=== PATIENT | male | born 2000 | race Caucasian/White ===

== ENCOUNTER 2022-08-05 16:20 | Inpatient (IN) ==
[2022-08-05 17:29] LABS: Albumin Globulin Ratio 1.8 (0.9-2); Albumin Level 4.8 gm/dl (3.4-5.0); BUN Creatinine Ratio 8.8 (10-20); Bilirubin,Total 1.1 mg/dl (0.2-1.0); Calcium 9.5 mg/dl (8.5-10.1); Creatinine Clr Calc Pharmacy 84.2 ml/min; Est GFR (African American) 107.1 ml/min; Est GFR (Non-African American) 92.4 ml/min; Globulin 2.7 gm/dl (2.5-4.0); Potassium 4.3 mmol/L (3.5-5.1); Total Protein 7.5 gm/dl (6.0-8.3)
[2022-08-05 17:32] LABS: Basophils # (auto) 0.01 K/uL (0-0.2); Echinocytes 1+; Eosinophils # (auto) 0.02 K/uL (0-0.50); Eosinophils % (auto) 2.1 %; Hematocrit (blood only) 38.8 % (40.1-51.0); Lymphocytes # (auto) 0.64 K/uL (1.2-3.4); Lymphocytes % (auto) 66.7 %; Mean Corpuscular Hemoglobin 30.1 pg (25.0-34.0); Mean Corpuscular Hgb Conc 36.1 g/dL (32.0-36.0); Mean Corpuscular Volume 83.4 fL (80.0-100.0); Mean Platelet Volume 9.7 fL (9.4-12.4); Monocytes # (auto) 0.26 K/uL (0.24-0.82); Monocytes % (auto) 27.1 %; Neutrophils # (auto) 0.03 K/uL (1.4-6.5); Neutrophils % (auto) 3.1 %; Platelet Count 126 K/uL (130-400); RDW Coefficient of Variation 12.4 % (11.5-14.5); RDW Standard Deviation 37.7 fL (36.4-46.3); Red Blood Count 4.65 M/uL (4.63-6.08); Tear Drop Cells 1+; White Blood Count 0.96 K/ul (4.8-10.8)
[2022-08-05] MEDS ORDERED: SODIUM CHLORIDE 0.9% 1000ML 1,000 ML IV ONE (17:32)
--- NOTE | 2022-08-05 17:37 | Emergency Department Note ---
Impression & Plan Fever and neutropenia ED Provider Note NAME: ANGELA JEFFREY AGE: 21 SEX: M : 2000 ARRIVES VIA: Walk-In INFORMANT: Patient, ED PROVIDER(S): Gasper Ellis DO CHIEF COMPLAINT: Fever HPI: The patient is a 21-year-old male who was recently diagnosed with Hodgkin's lymphoma who presented to the emergency department for an evaluation of fever. The patient had a fever which began over the last 24 hours. He did receive chemotherapy for the first time 1 week ago for his Hodgkin's lymphoma. The patient himself notices no cough. He denies having any dysuria. He has no back pain or rashes. He had a port placed as his right chest wall. He states there is no redness or pain over this area compared to previous. He called his oncologist when he developed a fever and was advised to come the emergency department immediately. ROS: See above HPI for pertinent positives & negatives. A total of 10 systems reviewed and were otherwise negative. PAST MEDICAL HISTORY: See Below PAST SURGICAL HISTORY: See Below FAMILY HISTORY: See Below SOCIAL HISTORY: See Below HOME MEDICATIONS: See Below ALLERGIES: See Below VITALS: See Below PHYSICAL EXAMINATION: GENERAL: Patient is awake alert in no acute distress patient is resting comfortably and showing no signs of anxiety EYES: The conjunctivae are clearpale. The pupils are round and reactive. EARS, NOSE, MOUTH AND THROAT: The nose is without any evidence of any deformity. NECK: The neck is nontender and supple. RESPIRATORY: Normal respiratory effort is noted there is no evidence of wheezing rhonchi or rales CARDIOVASCULAR: Regular rate and rhythm noted there no murmurs rubs or gallops normal S1 normal S2. GASTROINTESTINAL: The abdomen is soft. Abdomen is nontender. MUSCULOSKELETAL/EXTREMITIES: There is no evidence of gross deformity full range of motion is noted in the hips and shoulders. SKIN: Skin is cool and dry. There is no significant pedal edema. There is a port noted in the right anterior chest wall. There is no significant swelling or erythema however there is ecchymosis on the superior portion of the port vitaly cement. NEUROLOGIC: Patient is awake alert and oriented x3 MEDICAL DECISION MAKING: The patient is a 21-year-old male who presented to the emergency department for an evaluation of fever. The patient is 1 week status post infusion for chemotherapy for treatment of Hodgkin's lymphoma. The patient was treated with IV fluids in the emergency department. He was also treated with IV cefepime. I discussed the patient's laboratory and radiographic studies with him. I also discussed this case with the on-call [facility] hospitalist group. They have agr felipa to evaluate the patient in the emergency department for further management and disposition. Triage Nursing notes reviewed. Prior medical records reviewed Vital Signs: reviewed and remarkable for no significant abnormalities Differential diagnosis: Viral syndrome, otitis, pharyngitis, pneumonia, influenza, meningitis, urinary tract infection, sepsis, bacteremia, as well as other pathologies. ER treatment provided: See below Diagnostics interpreted by me: ECG: EKG was obtained in the emergency department. My interpretation is normal sinus rhythm at 90 bpm. There is no ectopy. Nonspecific ST segment abnormalities were noted in the anterior leads. No previous tracing was available. Cardiac Monitoring: An order was placed for continuous cardiac monitoring. The monitor shows a rate of 90 bpm with sinus rhythm. Laboratory studies: As stated above and show below. Imaging studies: See below Consultation(s): I discussed this case with Zoe who is on-call for the [facility] hospitalist group. Past Med/Surg History Medical History CKD (chronic kidney disease), stage II Hodgkin's lymphoma Hypoplastic left heart s/p repair Lupus Social History Smoking Status: Never smoker Feels Safe at Home: Yes Allergies Allergies Allergy/AdvReac Type Severity Reaction Status Date / Time cefdinir Allergy Mild Verified 11/21/20 10:57 Penicillins Allergy Mild Verified 11/21/20 10:58 Home Meds Home Medications Medication Instructions Recorded Confirmed allopurinol 100 mg tablet 300 mg PO DAILY 08/05/22 08/05/22 apixaban 2.5 mg tablet (Eliquis) 2.5 mg PO BID 08/05/22 08/05/22 digoxin 125 mcg (0.125 mg) tablet 125 mcg PO DAILY 08/05/22 08/05/22 lidocaine-prilocaine 2.5 %-2.5 % 08/05/22 topical cream lisinopril 2.5 mg tablet 2.5 mg PO DAILY 08/05/22 08/05/22 Results & Data (ED) Vital Signs Vital Signs - 24 hr 08/05/22 16:27 08/05/22 17:13 08/05/22 17:47 Temperature 37.2 C Temperature Source Oral Pulse Rate 113 H Pulse Rate [Apical] 99 H 92 H Pulse Rate from SpO2 Sensor Pulse Rhythm [Apical] Regular Regular Pulse Strength [Apical] Normal Normal Respiratory Rate 19 16 17 Respiratory Effort / Characteristics Non-Labored Spontaneous Non-Labored Spontaneous Respiratory Depth Normal Normal Respiratory Pattern Regular Regular Blood Pressure 101/65 Blood Pressure [Left Arm] 107/64 97/70 L Blood Pressure Mean 77 Blood Pressure Mean [Left Arm] 78 79 Blood Pressure Position [Left Arm] Semi-fowlers Semi-fowlers Pulse Oximetry 93 93 94 Oxygen Delivery Method Room Air Room Air Room Air Sepsis Recent Fever Within 48 Hours No Sepsis New/Unexplained Change in Mental Status N/A Sepsis Action Taken by Nursing No Action Required 08/05/22 18:00 08/05/22 18:41 08/05/22 19:00 Temperature 37.4 C Temperature Source Oral Pulse Rate Pulse Rate [Apical] 91 H 92 H 102 H Pulse Rate from SpO2 Sensor Pulse Rhythm [Apical] Regular Regular Regular Pulse Strength [Apical] Normal Normal Normal Respiratory Rate 18 18 14 Respiratory Effort / Characteristics Non-Labored Spontaneous Non-Labored Spontaneous Non-Labored Respiratory Depth Normal Normal Normal Respiratory Pattern Regular Regular Regular Blood Pressure Blood Pressure [Left Arm] 102/65 100/68 100/62 Blood Pressure Mean Blood Pressure Mean [Left Arm] 77 78 74 Blood Pressure Position [Left Arm] Semi-fowlers Semi-fowlers Lying Pulse Oximetry 97 94 94 Oxygen Delivery Method Room Air Room Air Room Air Sepsis Recent Fever Within 48 Hours Sepsis New/Unexplained Change in Mental Status Sepsis Action Taken by Nursing 08/05/22 17:11 08/05/22 17:15 08/05/22 17:30 Temperature Temperature Source Pulse Rate 100 H 100 H Pulse Rate [Apical] Pulse Rate from SpO2 Sensor 99 H 100 H Pulse Rhythm [Apical] Pulse Strength [Apical] Respiratory Rate 20 22 Respiratory Effort / Characteristics Respiratory Depth Respiratory Pattern Blood Pressure 97/70 L Blood Pressure [Left Arm] Blood Pressure Mean 79 Blood Pressure Mean [Left Arm] Blood Pressure Position [Left Arm] Pulse Oximetry 94 92 Oxygen Delivery Method Sepsis Recent Fever Within 48 Hours Sepsis New/Unexplained Change in Mental Status Sepsis Action Taken by Nursing 08/05/22 17:30 08/05/22 17:45 08/05/22 18:00 Temperature Temperature Source Pulse Rate 101 H 103 H Pulse Rate [Apical] Pulse Rate from SpO2 Sensor 100 H 100 H Pulse Rhythm [Apical] Pulse Strength [Apical] Respiratory Rate 27 H 27 H Respiratory Effort / Characteristics Respiratory Depth Respiratory Pattern Blood Pressure 102/65 Blood Pressure [Left Arm] Blood Pressure Mean 77 Blood Pressure Mean [Left Arm] Blood Pressure Position [Left Arm] Pulse Oximetry 91 91 Oxygen Delivery Method Sepsis Recent Fever Within 48 Hours Sepsis New/Unexplained Change in Mental Status Sepsis Action Taken by Nursing 08/05/22 18:00 08/05/22 18:15 08/05/22 18:30 Temperature Temperature Source Pulse Rate 91 H 97 H Pulse Rate [Apical] Pulse Rate from SpO2 Sensor 93 H 95 H Pulse Rhythm [Apical] Pulse Strength [Apical] Respiratory Rate 19 23 Respiratory Effort / Characteristics Respiratory Depth Respiratory Pattern Blood Pressure 100/68 Blood Pressure [Left Arm] Blood Pressure Mean 78 Blood Pressure Mean [Left Arm] Blood Pressure Position [Left Arm] Pulse Oximetry 95 96 Oxygen Delivery Method Sepsis Recent Fever Within 48 Hours Sepsis New/Unexplained Change in Mental Status Sepsis Action Taken by Nursing 08/05/22 18:30 08/05/22 18:45 08/05/22 19:00 Temperature Temperature Source Pulse Rate 91 H 95 H Pulse Rate [Apical] Pulse Rate from SpO2 Sensor 96 H Pulse Rhythm [Apical] Pulse Strength [Apical] Respiratory Rate 16 19 Respiratory Effort / Characteristics Respiratory Depth Respiratory Pattern Blood Pressure 93/60 L Blood Pressure [Left Arm] Blood Pressure Mean 71 Blood Pressure Mean [Left Arm] Blood Pressure Position [Left Arm] Pulse Oximetry 92 Oxygen Delivery Method Sepsis Recent Fever Within 48 Hours Sepsis New/Unexplained Change in Mental Status Sepsis Action Taken by Nursing 08/05/22 19:00 08/05/22 19:15 08/05/22 20:00 Temperature Temperature Source Pulse Rate 97 H 98 H Pulse Rate [Apical] 88 Pulse Rate from SpO2 Sensor 96 H 98 H Pulse Rhythm [Apical] Regular Pulse Strength [Apical] Normal Respiratory Rate 15 26 H 14 Respiratory Effort / Characteristics Non-Labored Respiratory Depth Normal Respiratory Pattern Regular Blood Pressure Blood Pressure [Left Arm] 117/88 Blood Pressure Mean Blood Pressure Mean [Left Arm] 97 Blood Pressure Position [Left Arm] Sitting Pulse Oximetry 92 92 99 Oxygen Delivery Method Room Air Sepsis Recent Fever Within 48 Hours Sepsis New/Unexplained Change in Mental Status Sepsis Action Taken by Nursing 08/05/22 19:30 08/05/22 19:30 08/05/22 19:45 Temperature Temperature Source Pulse Rate 99 H 104 H Pulse Rate [Apical] Pulse Rate from SpO2 Sensor 99 H 104 H Pulse Rhythm [Apical] Pulse Strength [Apical] Respiratory Rate 13 12 Respiratory Effort / Characteristics Respiratory Depth Respiratory Pattern Blood Pressure 111/68 Blood Pressure [Left Arm] Blood Pressure Mean 82 Blood Pressure Mean [Left Arm] Blood Pressure Position [Left Arm] Pulse Oximetry 93 90 Oxygen Delivery Method Sepsis Recent Fever Within 48 Hours Sepsis New/Unexplained Change in Mental Status Sepsis Action Taken by Nursing 08/05/22 20:00 08/05/22 20:00 08/05/22 20:15 Temperature Temperature Source Pulse Rate 95 H 96 H Pulse Rate [Apical] Pulse Rate from SpO2 Sensor 94 H 97 H Pulse Rhythm [Apical] Pulse Strength [Apical] Respiratory Rate 17 24 Respiratory Effort / Characteristics Respiratory Depth Respiratory Pattern Blood Pressure 92/65 L Blood Pressure [Left Arm] Blood Pressure Mean 74 Blood Pressure Mean [Left Arm] Blood Pressure Position [Left Arm] Pulse Oximetry 84 L 94 Oxygen Delivery Method Sepsis Recent Fever Within 48 Hours Sepsis New/Unexplained Change in Mental Status Sepsis Action Taken by [facility]dc Medications Current Medication List: was personally reviewed by me Laboratory Data Attestation: I reviewed the patient's lab results. Result diagrams: 08/05/22 16:43 08/05/22 16:43 Lab Results 08/05/22 08/05/22 08/05/22 Range/Units 16:43 16:43 16:43 WBC 0.96 L* (4.8-10.8) K/ul RBC 4.65 (4.63-6.08) M/uL Hgb 14.0 (14.0-18.0) g/dl Hct 38.8 L (40.1-51.0) % MCV 83.4 (80.0-100.0) fL MCH 30.1 (25.0-34.0) pg MCHC 36.1 H (32.0-36.0) g/dL RDW Std Deviation 37.7 (36.4-46.3) fL RDW Coeff of Servando 12.4 (11.5-14.5) % Plt Count 126 L (130-400) K/uL MPV 9.7 (9.4-12.4) fL Immature Gran % (Auto) 0.0 % Neut % (Auto) 3.1 % Lymph % (Auto) 66.7 % Tyler % (Auto) 27.1 % Eos % (Auto) 2.1 % Baso % (Auto) 1.0 % Neut # (Auto) 0.03 L* (1.4-6.5) K/uL Lymph # (Auto) 0.64 L (1.2-3.4) K/uL Tyler # (Auto) 0.26 (0.24-0.82) K/uL Eos # (Auto) 0.02 (0-0.50) K/uL Baso # (Auto) 0.01 (0-0.2) K/uL Immature Gran # (Auto) 0.00 (0.00-0.02) K/uL Tear Drop Cells 1+ Echinocytes 1+ ESR (0-15) mm/hr Sodium 129 L (136-145) mmol/L Potassium 4.3 (3.5-5.1) mmol/L Chloride 97 L (98-107) mmol/L Carbon Dioxide 26 (21-32) mmol/L Anion Gap 6 (3-11) BUN 10 (6-23) mg/dl Creatinine 1.13 (0.6-1.4) mg/dl Est Cr Clr Drug Dosing 84.2 ml/min Est GFR ( Amer) 107.1 ml/min Est GFR (Non-Af Amer) 92.4 ml/min BUN/Creatinine Ratio 8.8 L (10-20) Glucose 99 (70-99(Fasting)) mg/dl Osmolality (280-300) mOsm/kg Lactate 0.6 (0.4-2.0) mmol/L Calcium 9.5 (8.5-10.1) mg/dl Magnesium (1.7-2.4) mg/dl Total Bilirubin 1.1 H (0.2-1.0) mg/dl Direct Bilirubin (0-0.2) mg/dl AST 16 (13-39) U/L ALT 30 (7-52) U/L Alkaline Phosphatase 64 (34-104) U/L Troponin I High Sens (0-20) pg/ml C-Reactive Protein (0-0.5) mg/dl Total Protein 7.5 (6.0-8.3) gm/dl Albumin 4.8 (3.4-5.0) gm/dl Globulin 2.7 (2.5-4.0) gm/dl Albumin/Globulin Ratio 1.8 (0.9-2) Procalcitonin (0-0.5) ng/ml Urine Color Urine Appearance (Clear) Urine pH (4.5-7.5) Ur Specific [place] (1.000-1.030) Urine Protein (Negative) Urine Glucose (UA) (Negative) Urine Ketones (Negative) Urine Blood (Negative) Urine Nitrite (Negative) Urine Bilirubin (Negative) Urine Urobilinogen (Negative) Ur Leukocyte Esterase (Negative) SARS-CoV-2, RNA, NAAT (NEGATIVE) 08/05/22 08/05/22 08/05/22 Range/Units 16:43 16:45 16:45 WBC (4.8-10.8) K/ul RBC (4.63-6.08) M/uL Hgb (14.0-18.0) g/dl Hct (40.1-51.0) % MCV (80.0-100.0) fL MCH (25.0-34.0) pg MCHC (32.0-36.0) g/dL RDW Std Deviation (36.4-46.3) fL RDW Coeff of Servando (11.5-14.5) % Plt Count (130-400) K/uL MPV (9.4-12.4) fL Immature Gran % (Auto) % Neut % (Auto) % Lymph % (Auto) % Tyler % (Auto) % Eos % (Auto) % Baso % (Auto) % Neut # (Auto) (1.4-6.5) K/uL Lymph # (Auto) (1.2-3.4) K/uL Tyler # (Auto) (0.24-0.82) K/uL Eos # (Auto) (0-0.50) K/uL Baso # (Auto) (0-0.2) K/uL Immature Gran # (Auto) (0.00-0.02) K/uL Tear Drop Cells Echinocytes ESR 13 (0-15) mm/hr Sodium (136-145) mmol/L Potassium (3.5-5.1) mmol/L Chloride (98-107) mmol/L Carbon Dioxide (21-32) mmol/L Anion Gap (3-11) BUN (6-23) mg/dl Creatinine (0.6-1.4) mg/dl Est Cr Clr Drug Dosing ml/min Est GFR ( Amer) ml/min Est GFR (Non-Af Amer) ml/min BUN/Creatinine Ratio (10-20) Glucose (70-99(Fasting)) mg/dl Osmolality (280-300) mOsm/kg Lactate (0.4-2.0) mmol/L Calcium (8.5-10.1) mg/dl Magnesium 1.8 (1.7-2.4) mg/dl Total Bilirubin (0.2-1.0) mg/dl Direct Bilirubin 0.4 H (0-0.2) mg/dl AST (13-39) U/L ALT (7-52) U/L Alkaline Phosphatase (34-104) U/L Troponin I High Sens 2.7 (0-20) pg/ml C-Reactive Protein 4.03 H (0-0.5) mg/dl Total Protein (6.0-8.3) gm/dl Albumin (3.4-5.0) gm/dl Globulin (2.5-4.0) gm/dl Albumin/Globulin Ratio (0.9-2) Procalcitonin < 0.05 (0-0.5) ng/ml Urine Color Urine Appearance (Clear) Urine pH (4.5-7.5) Ur Specific [place] (1.000-1.030) Urine Protein (Negative) Urine Glucose (UA) (Negative) Urine Ketones (Negative) Urine Blood (Negative) Urine Nitrite (Negative) Urine Bilirubin (Negative) Urine Urobilinogen (Negative) Ur Leukocyte Esterase (Negative) SARS-CoV-2, RNA, NAAT (NEGATIVE) 08/05/22 08/05/22 08/05/22 Range/Units 16:45 17:45 19:23 WBC (4.8-10.8) K/ul RBC (4.63-6.08) M/uL Hgb (14.0-18.0) g/dl Hct (40.1-51.0) % MCV (80.0-100.0) fL MCH (25.0-34.0) pg MCHC (32.0-36.0) g/dL RDW Std Deviation (36.4-46.3) fL RDW Coeff of Servando (11.5-14.5) % Plt Count (130-400) K/uL MPV (9.4-12.4) fL Immature Gran % (Auto) % Neut % (Auto) % Lymph % (Auto) % Tyler % (Auto) % Eos % (Auto) % Baso % (Auto) % Neut # (Auto) (1.4-6.5) K/uL Lymph # (Auto) (1.2-3.4) K/uL Tyler # (Auto) (0.24-0.82) K/uL Eos # (Auto) (0-0.50) K/uL Baso # (Auto) (0-0.2) K/uL Immature Gran # (Auto) (0.00-0.02) K/uL Tear Drop Cells Echinocytes ESR (0-15) mm/hr Sodium (136-145) mmol/L Potassium (3.5-5.1) mmol/L Chloride (98-107) mmol/L Carbon Dioxide (21-32) mmol/L Anion Gap (3-11) BUN (6-23) mg/dl Creatinine (0.6-1.4) mg/dl Est Cr Clr Drug Dosing ml/min Est GFR ( Amer) ml/min Est GFR (Non-Af Amer) ml/min BUN/Creatinine Ratio (10-20) Glucose (70-99(Fasting)) mg/dl Osmolality 271 L (280-300) mOsm/kg Lactate (0.4-2.0) mmol/L Calcium (8.5-10.1) mg/dl Magnesium (1.7-2.4) mg/dl Total Bilirubin (0.2-1.0) mg/dl Direct Bilirubin (0-0.2) mg/dl AST (13-39) U/L ALT (7-52) U/L Alkaline Phosphatase (34-104) U/L Troponin I High Sens (0-20) pg/ml C-Reactive Protein (0-0.5) mg/dl Total Protein (6.0-8.3) gm/dl Albumin (3.4-5.0) gm/dl Globulin (2.5-4.0) gm/dl Albumin/Globulin Ratio (0.9-2) Procalcitonin (0-0.5) ng/ml Urine Color Yellow Urine Appearance Clear (Clear) Urine pH 6.0 (4.5-7.5) Ur Specific [place] 1.010 (1.000-1.030) Urine Protein Negative (Negative) Urine Glucose (UA) Negative (Negative) Urine Ketones Negative (Negative) Urine Blood Negative (Negative) Urine Nitrite Negative (Negative) Urine Bilirubin Negative (Negative) Urine Urobilinogen Negative (Negative) Ur Leukocyte Esterase Negative (Negative) SARS-CoV-2, RNA, NAAT NEGATIVE (NEGATIVE) 08/05/22 Range/Units 19:34 WBC (4.8-10.8) K/ul RBC (4.63-6.08) M/uL Hgb (14.0-18.0) g/dl Hct (40.1-51.0) % MCV (80.0-100.0) fL MCH (25.0-34.0) pg MCHC (32.0-36.0) g/dL RDW Std Deviation (36.4-46.3) fL RDW Coeff of Servando (11.5-14.5) % Plt Count (130-400) K/uL MPV (9.4-12.4) fL Immature Gran % (Auto) % Neut % (Auto) % Lymph % (Auto) % Tyler % (Auto) % Eos % (Auto) % Baso % (Auto) % Neut # (Auto) (1.4-6.5) K/uL Lymph # (Auto) (1.2-3.4) K/uL Tyler # (Auto) (0.24-0.82) K/uL Eos # (Auto) (0-0.50) K/uL Baso # (Auto) (0-0.2) K/uL Immature Gran # (Auto) (0.00-0.02) K/uL Tear Drop Cells Echinocytes ESR (0-15) mm/hr Sodium (136-145) mmol/L Potassium (3.5-5.1) mmol/L Chloride (98-107) mmol/L Carbon Dioxide (21-32) mmol/L Anion Gap (3-11) BUN (6-23) mg/dl Creatinine (0.6-1.4) mg/dl Est Cr Clr Drug Dosing ml/min Est GFR ( Amer) ml/min Est GFR (Non-Af Amer) ml/min BUN/Creatinine Ratio (10-20) Glucose (70-99(Fasting)) mg/dl Osmolality (280-300) mOsm/kg Lactate 0.6 (0.4-2.0) mmol/L Calcium (8.5-10.1) mg/dl Magnesium (1.7-2.4) mg/dl Total Bilirubin (0.2-1.0) mg/dl Direct Bilirubin (0-0.2) mg/dl AST (13-39) U/L ALT (7-52) U/L Alkaline Phosphatase (34-104) U/L Troponin I High Sens (0-20) pg/ml C-Reactive Protein (0-0.5) mg/dl Total Protein (6.0-8.3) gm/dl Albumin (3.4-5.0) gm/dl Globulin (2.5-4.0) gm/dl Albumin/Globulin Ratio (0.9-2) Procalcitonin (0-0.5) ng/ml Urine Color Urine Appearance (Clear) Urine pH (4.5-7.5) Ur Specific [place] (1.000-1.030) Urine Protein (Negative) Urine Glucose (UA) (Negative) Urine Ketones (Negative) Urine Blood (Negative) Urine Nitrite (Negative) Urine Bilirubin (Negative) Urine Urobilinogen (Negative) Ur Leukocyte Esterase (Negative) SARS-CoV-2, RNA, NAAT (NEGATIVE) Administered Medications Discontinued Medications Apixaban (Apixaban 2.5 Mg Tab) 2.5 mg PO NOW STA Stop: 08/05/22 20:19 Last Admin: 08/05/22 20:54 Dose: 2.5 mg Documented By: LANA Sodium Chloride (Nss 1000ml) 1,000 mls @ 999 mls/hr IV .[id number] ONE Stop: 08/05/22 18:32 Last Infusion: 08/05/22 18:32 Dose: 0 mls/hr Documented By: Admin: 08/05/22 17:30 Dose: 999 mls/hr Documented By: NA Cefepime HCl (Maxipime) 2,000 mg in 20 mls @ 5 mls/min IV NOW STA; Protocol Stop: 08/05/22 17:57 Last Admin: 08/05/22 18:07 Dose: 5 mls/min Documented By: LOUISE Daptomycin 350 mg/ Syringe 7 mls @ 3.5 mls/min IV ONE ONE; Protocol Stop: 08/05/22 19:31 Last Admin: 08/05/22 20:40 Dose: 3.5 mls/min Documented By: LANA Magnesium Sulfate/Dextrose (Magnesium Sulfate / D5w) 1 gm in 100 mls @ 50 mls/hr IV ONE ONE Stop: 08/05/22 21:20 Last Admin: 08/05/22 20:41 Dose: 50 mls/hr Documented By: LANA Imaging Data Radiologist's Impression: Chest X-Ray 08/05/22 17:32 XR chest 1V portable HISTORY: 21 years-old Male Sepsis acute sepsis COMPARISON: None TECHNIQUE: AP view of the chest FINDINGS: Cardiac silhouette is enlarged. Pediatric sternotomy wires are present. Right IJ [id number]-[id number] catheter distal tip terminates within the right atrium. The patient is mildly rotated towards the left. No pneumothorax, large pleural effusion, airspace consolidation or overt pulmonary edema. Mild blunting of the lateral right costophrenic angle. Bones appear normal. IMPRESSION: No acute process. ACT 112: Negative or not required by law. The above report was generated using voice recognition software. It may contain grammatical, syntax or spelling errors. Electronically signed by: Sp Mendoza M.D. 08/05/2022 5:40 PM Discharge Plan Visit Data Chief Complaint: Fever Stated Complaint: CHEMO, REF BY , FEVER ED Provider: Gasper Ellis Discharge Problem: Fever and neutropenia Patient Disposition: Being Evaluated by Hospitalist Discharge Instructions Interventions: ED Discharge Assessment Last Done: 08/05/22 22:00
--- NOTE | 2022-08-05 17:42 | XRay Report ---
XR chest 1V portable HISTORY: 21 years-old Male Sepsis acute sepsis COMPARISON: None TECHNIQUE: AP view of the chest FINDINGS: Cardiac silhouette is enlarged. Pediatric sternotomy wires are present. Right IJ [id number] cathet er distal tip terminates within the right atrium. The patient is mildly rotated towards the left. No pneumothorax, large pleural effusion, airspace consolidation or overt pulmonary edema. Mild blunting of the lateral right costophrenic angle. Bones appear normal. IMPRESSION: No acute process. ACT 112: Negative or not required by law. The above report was generated using voice recognition software. It may contain grammatical, syntax o r spelling errors. Electronically signed by: Sp Mendoza M.D. 08/05/2022 5:40 PM
[2022-08-05] MEDS ORDERED: CEFEPIME 2,000 MG/20 ML VIAL IV STA (17:54)
[2022-08-05 18:13] LABS: Appearance Urine Clear (Clear); Bilirubin Urine Negative (Negative); Blood Urine Negative (Negative); Color Urine Yellow; Glucose Urine UA Negative (Negative); Ketones Urine Negative (Negative); Leukocyte Esterase Urine Negative (Negative); Nitrite Urine Negative (Negative); Protein Urine Negative (Negative); Urobilinogen Urine Negative (Negative)
[2022-08-05 18:32] LABS: Bilirubin Direct 0.4 mg/dl (0-0.2); C Reactive Protein 4.03 mg/dl (0-0.5); Magnesium 1.8 mg/dl (1.7-2.4)
[2022-08-05 18:39] LABS: Troponin I High Sensitivity 2.7 pg/ml (0-20)
[2022-08-05] MEDS ORDERED: MAGNESIUM SULFATE / D5W 1 GM/100 ML BAG IV ONE (19:21)
[2022-08-05] MEDS ORDERED: DAPTOmycin 350 MG in SYRINGE 0 ML IV ONE (19:30)
--- NOTE | 2022-08-05 20:10 | History & Physical Report ---
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 Daptomycin and Cefepime for now DVT prophylaxis. Eliquis Full code Patient mother requesting updates from providers. Ms. Babita Cline, contact #[phone]. Text document was generated using [employer] voice recognition software. It may contain grammatical or spelling errors. Kindly contact undersigned for clarification of any documentation item in question. History of Present Illness Chief Complaint: Fever, sent by oncologist Primary Care Provider: Isaiah Rangel DO History obtained from patient, family, and records. 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 Patient received chemotherapy for the first time last week. Tolerable nausea symptoms. Today, patient noted to be febrile at home. Patient denies chest pain, SOB, cough, abdominal pain, dysuria symptoms. Patient actually constipated. Usual A port redness as per patient. Patient has not received COVID-19 vaccination. 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 IV Cefepime administered at the ER. Medical History as above Surgical History : A port placement lymph node biopsy, modified Fontan procedure, Santi repair, vessel shunt procedure Family History : Alcoholism, blood clots, DM, heart disease, rheumatoid arthritis Personal/Social history : Non-smoker, no EtOH intake, retail work at a local [employer] Allergies Allergy/AdvReac Type Severity Reaction Status Date / Time cefdinir Allergy Mild Verified 11/21/20 10:57 Penicillins Allergy Mild Verified 11/21/20 10:58 Home Medications Medication Instructions Recorded Confirmed Type allopurinol 100 mg tablet 300 mg PO DAILY 08/05/22 08/05/22 History apixaban 2.5 mg tablet (Eliquis) 2.5 mg PO BID 08/05/22 08/05/22 History digoxin 125 mcg (0.125 mg) tablet 125 mcg PO DAILY 08/05/22 08/05/22 History lidocaine-prilocaine 2.5 %-2.5 % 08/05/22 History topical cream lisinopril 2.5 mg tablet 2.5 mg PO DAILY 08/05/22 08/05/22 History Past Med/Surg History Medical History (Updated 08/06/22 @ 10:22 by Eduin Lizarraga MD) CKD (chronic kidney disease), stage II Factor V Leiden mutation Hodgkin's lymphoma Hyperuricemia Hypoplastic left heart s/p repair Lupus Splenomegaly Thrombocytopenia due to hypersplenism Social History Smoking Status: Never smoker Hx Alcohol Use: No Hx Substance Use: No Communication Ability: Effective Beliefs That Will Affect Care: None Current Living Situation: Family Feels Safe at Home: Yes Review of Systems Review of Systems: As per HPI, all other systems reviewed and negative Physical Exam Physical Exam: GENERAL: Comfortable, pleasant, no respiratory distress SKIN: Normal color, warm HEENT: [place] palpebral conjunctivae, no ptosis, dry buccal mucosa NECK : Supple, no tenderness CHEST : CTA, a port, right chest wall, no tenderness HEART : RRR, no obvious murmurs ABDOMEN: Some distention, nontender EXTREMITIES : No LE swelling/tenderness, no other conspicuous deformities noted NEUROLOGIC : Coherent, no facial asymmetry, no other gross focality Results & Data Results & Data ([facility]) Vital Signs (Past 12 Hours) Vital Signs Temp Pulse Pulse Resp BP BP Pulse Ox 08/05/22 19:15 98 H 26 H 92 08/05/22 19:00 97 H 15 92 08/05/22 19:00 93/60 L 08/05/22 18:45 95 H 19 92 08/05/22 18:30 91 H 16 08/05/22 18:30 100/68 08/05/22 18:15 97 H 23 96 08/05/22 18:00 91 H 19 95 08/05/22 18:00 102/65 08/05/22 17:45 103 H 27 H 91 08/05/22 17:30 101 H 27 H 91 08/05/22 17:30 97/70 L 08/05/22 17:15 100 H 22 92 08/05/22 17:11 100 H 20 94 08/05/22 19:00 37.4 C 102 H 14 100/62 94 08/05/22 18:41 92 H 18 100/68 94 08/05/22 18:00 91 H 18 102/65 97 08/05/22 17:47 92 H 17 97/70 L 94 08/05/22 17:13 99 H 16 107/64 93 08/05/22 16:27 37.2 C 113 H 19 101/65 93 O2 Del Method 08/05/22 19:15 08/05/22 19:00 08/05/22 19:00 08/05/22 18:45 08/05/22 18:30 08/05/22 18:30 08/05/22 18:15 08/05/22 18:00 08/05/22 18:00 08/05/22 17:45 08/05/22 17:30 08/05/22 17:30 08/05/22 17:15 08/05/22 17:11 08/05/22 19:00 Room Air 08/05/22 18:41 Room Air 08/05/22 18:00 Room Air 08/05/22 17:47 Room Air 08/05/22 17:13 Room Air 08/05/22 16:27 Room Air Laboratory Results Laboratory Results WBC 0.96 K/ul (4.8-10.8) L* 08/05/22 16:43 RBC 4.65 M/uL (4.63-6.08) 08/05/22 16:43 Hgb 14.0 g/dl (14.0-18.0) 08/05/22 16:43 Hct 38.8 % (40.1-51.0) L 08/05/22 16:43 MCV 83.4 fL (80.0-100.0) 08/05/22 16:43 MCH 30.1 pg (25.0-34.0) 08/05/22 16:43 MCHC 36.1 g/dL (32.0-36.0) H 08/05/22 16:43 RDW Std Deviation 37.7 fL (36.4-46.3) 08/05/22 16:43 RDW Coeff of [place]ando 12.4 % (11.5-14.5) 08/05/22 16:43 Plt Count 126 K/uL (130-400) L 08/05/22 16:43 MPV 9.7 fL (9.4-12.4) 08/05/22 16:43 Immature Gran % (Auto) 0.0 % 08/05/22 16:43 Neut % (Auto) 3.1 % 08/05/22 16:43 Lymph % (Auto) 66.7 % 08/05/22 16:43 [place] % (Auto) 27.1 % 08/05/22 16:43 Eos % (Auto) 2.1 % 08/05/22 16:43 Baso % (Auto) 1.0 % 08/05/22 16:43 Neut # (Auto) 0.03 K/uL (1.4-6.5) L* 08/05/22 16:43 Lymph # (Auto) 0.64 K/uL (1.2-3.4) L 08/05/22 16:43 [place] # (Auto) 0.26 K/uL (0.24-0.82) 08/05/22 16:43 Eos # (Auto) 0.02 K/uL (0-0.50) 08/05/22 16:43 Baso # (Auto) 0.01 K/uL (0-0.2) 08/05/22 16:43 Immature Gran # (Auto) 0.00 K/uL (0.00-0.02) 08/05/22 16:43 Tear Drop Cells 1+ 08/05/22 16:43 Echinocytes 1+ 08/05/22 16:43 ESR 13 mm/hr (0-15) 08/05/22 16:43 Sodium 129 mmol/L (136-145) L 08/05/22 16:43 Potassium 4.3 mmol/L (3.5-5.1) 08/05/22 16:43 Chloride 97 mmol/L (98-107) L 08/05/22 16:43 Carbon Dioxide 26 mmol/L (21-32) 08/05/22 16:43 Anion Gap 6 (3-11) 08/05/22 16:43 BUN 10 mg/dl (6-23) 08/05/22 16:43 Creatinine 1.13 mg/dl (0.6-1.4) 08/05/22 16:43 Est Cr Clr Drug Dosing 84.2 ml/min 08/05/22 16:43 Est GFR ( Amer) 107.1 ml/min 08/05/22 16:43 Est GFR (Non-Af Amer) 92.4 ml/min 08/05/22 16:43 BUN/Creatinine Ratio 8.8 (10-20) L 08/05/22 16:43 Glucose 99 mg/dl (70-99(Fasting)) 08/05/22 16:43 Lactate 0.6 mmol/L (0.4-2.0) 08/05/22 16:43 Calcium 9.5 mg/dl (8.5-10.1) 08/05/22 16:43 Magnesium 1.8 mg/dl (1.7-2.4) 08/05/22 16:45 Total Bilirubin 1.1 mg/dl (0.2-1.0) H 08/05/22 16:43 Direct Bilirubin 0.4 mg/dl (0-0.2) H 08/05/22 16:45 AST 16 U/L (13-39) 08/05/22 16:43 ALT 30 U/L (7-52) 08/05/22 16:43 Alkaline Phosphatase 64 U/L (34-104) 08/05/22 16:43 Troponin I High Sens 2.7 pg/ml (0-20) 08/05/22 16:45 C-Reactive Protein 4.03 mg/dl (0-0.5) H 08/05/22 16:45 Total Protein 7.5 gm/dl (6.0-8.3) 08/05/22 16:43 Albumin 4.8 gm/dl (3.4-5.0) 08/05/22 16:43 Globulin 2.7 gm/dl (2.5-4.0) 08/05/22 16:43 Albumin/Globulin Ratio 1.8 (0.9-2) 08/05/22 16:43 Procalcitonin < 0.05 ng/ml (0-0.5) 08/05/22 16:45 Urine Color Yellow 08/05/22 17:45 Urine Appearance Clear (Clear) 08/05/22 17:45 Urine pH 6.0 (4.5-7.5) 08/05/22 17:45 Ur Specific [place] 1.010 (1.000-1.030) 08/05/22 17:45 Urine Protein Negative (Negative) 08/05/22 17:45 Urine Glucose (UA) Negative (Negative) 08/05/22 17:45 Urine Ketones Negative (Negative) 08/05/22 17:45 Urine Blood Negative (Negative) 08/05/22 17:45 Urine Nitrite Negative (Negative) 08/05/22 17:45 Urine Bilirubin Negative (Negative) 08/05/22 17:45 Urine Urobilinogen Negative (Negative) 08/05/22 17:45 Ur Leukocyte Esterase Negative (Negative) 08/05/22 17:45 SARS-CoV-2, RNA, NAAT NEGATIVE (NEGATIVE) 08/05/22 19:23 Impressions Chest X-Ray 08/05/22 17:32 XR chest 1V portable HISTORY: 21 years-old Male Sepsis acute sepsis COMPARISON: None TECHNIQUE: AP view of the chest FINDINGS: Cardiac silhouette is enlarged. Pediatric sternotomy wires are present. Right IJ [id number] catheter distal tip terminates within the right atrium. The patient is mildly rotated towards the left. No pneumothorax, large pleural effusion, airspace consolidation or overt pulmonary edema. Mild blunting of the lateral right costophrenic angle. Bones appear normal. IMPRESSION: No acute process. ACT 112: Negative or not required by law. The above report was generated using voice recognition software. It may contain grammatical, syntax or spelling errors. Electronically signed by: Sp Mendoza M.D. 08/05/2022 5:40 PM Diagnostic Findings EKG as per my interpretation :Rate 100, NSR, RAD, incomplete RBBB, RVH, T wave inversion septal leads
[2022-08-05] MEDS ORDERED: APIXABAN 2.5 MG TAB PO STA (20:18)
[2022-08-05] MEDS ORDERED: PROMETHAZINE HCL 6.25 MG in SODIUM CHLORIDE 0.9% 50 ML IV PRN (22:29)
[2022-08-05] MEDS ORDERED: POLYETHYLENE (MIRALAX) 17 GM PACK PO STA (23:45)
[2022-08-06] MEDS: DOCUSATE SODIUM/SENNA 50/8.6MG TAB PO SCH ×2 (00:44→09:08)
[2022-08-06] MEDS: CEFEPIME 2,000 MG in SYRINGE 0 ML IV SCH ×3 (04:38→19:43)
[2022-08-06] MEDS: ACETAMINOPHEN 325 MG TAB PO PRN (04:38)
[2022-08-06] MEDS ORDERED: SODIUM CHLORIDE 0.9% 1000ML 1,000 ML IV ONE (04:40)
[2022-08-06] MEDS ORDERED: lisinopril 2.5 MG TAB PO SCH (09:00)
[2022-08-06] MEDS: allopurinoL 300 MG TAB PO SCH (09:07)
[2022-08-06] MEDS: APIXABAN 2.5 MG TAB PO SCH ×2 (09:07→21:56)
[2022-08-06 09:45] LABS: Albumin Globulin Ratio 1.4 (0.9-2); BUN Creatinine Ratio 12.1 (10-20); Calcium 9.2 mg/dl (8.5-10.1); Creatinine Clr Calc Pharmacy 81.4 ml/min; Est GFR (African American) 103.8 ml/min; Est GFR (Non-African American) 89.5 ml/min; Globulin 2.8 gm/dl (2.5-4.0); Total Protein 6.8 gm/dl (6.0-8.3)
[2022-08-06 10:30] LABS: Basophils # (auto) 0.01 K/uL (0-0.2); Basophils % (auto) 1.2 %; Eosinophils # (auto) 0.04 K/uL (0-0.50); Eosinophils % (auto) 4.8 %; Hematocrit (blood only) 34.4 % (40.1-51.0); Hemoglobin 12.3 g/dl (14.0-18.0); Lymphocytes # (auto) 0.51 K/uL (1.2-3.4); Lymphocytes % (auto) 61.4 %; Mean Corpuscular Hemoglobin 29.8 pg (25.0-34.0); Mean Corpuscular Hgb Conc 35.8 g/dL (32.0-36.0); Mean Corpuscular Volume 83.3 fL (80.0-100.0); Mean Platelet Volume 9.8 fL (9.4-12.4); Monocytes # (auto) 0.24 K/uL (0.24-0.82); Monocytes % (auto) 28.9 %; Neutrophils # (auto) 0.03 K/uL (1.4-6.5); Neutrophils % (auto) 3.7 %; Platelet Count 93 K/uL (130-400); RDW Coefficient of Variation 12.6 % (11.5-14.5); RDW Standard Deviation 38.3 fL (36.4-46.3); Red Blood Count 4.13 M/uL (4.63-6.08); White Blood Count 0.83 K/ul (4.8-10.8)
--- NOTE | 2022-08-06 12:35 | Electrocardiogram Report ---
Test Reason : Blood Pressure : / mmHG Vent. Rate : 098 BPM Atrial Rate : 098 BPM P-R Int : 204 ms QRS Dur : 104 ms QT Int : 342 ms P-R-T Axes : 024 104 077 degrees QTc Int : 436 ms Normal sinus rhythm Incomplete right bundle branch block Possible Right ventricular hypertrophy Nonspecific ST abnormality Abnormal ECG No previous ECGs available Confirmed by Hernan Blevins ([id number]) on 08/06/2022 12:34:53 PM Referred By: REFERRED SELF Confirmed By:Hernan Blevins
--- NOTE | 2022-08-06 15:49 | Hospitalist Progress Note ---
Date of Service August 06, 2022 Assessment & Plan (1) Sepsis: Plan: Resuscitated this am, however, was hypotensive throughout the day today requiring 2.5L LR bolus . Cont IVF resuscitation and if no improvement consider pressor support. Moving to PCU overnight. Low threshold for pressors in ICU. Cont broad abx. (2) Fever and neutropenia: Plan: Fever in last two days. No clear source. Cont broad antibiotic coverage now with Daptomycin and Cefepime. CK in am. For his neutropenia, if no improvement in ANC by tomorrow, will give Neupogen. Discussed this plan with his Oncologist. (3) Hodgkin's lymphoma: Plan: on treatment with Adriamycin, vinblastine and Dacarbazine last given approx 10- 14 days ago. That was his first treatment. Cont per oncology who is aware of his current admission. (4) Factor V Leiden mutation: Plan: on apixaban for DVT prophylaxis. No prior thrombotic events but is high risk for this now. (5) Hyperuricemia: Plan: Continues on allopurinol (6) Drug-induced systemic lupus erythematosus: Plan: history of this. (7) DVT prophylaxis: Plan: Eliquis Full Code Dipso-to home when sepsis is resolved and we have achieved source control. Sister was at bedside and was updated. Charity Gardner DO [facility] Hospitalist Admission and Anticipated Discharge Date Admission Date: August 05, 2022 Subjective 21 yo M with febrile neutropenia without clear source. He is a chemo patient with Hogkin's lymphoma with last chemo treatment 10 days ago. Intermittent chills throughout the morning He is up and walking in the room Denies respiratory symptoms Denies pain anywhere Review of Systems Review of Systems: all systems were reviewed and negative except as indicated on subjective above. Physical Exam Physical Exam: CONSTITUTIONAL: WNWD, vitals as above, generally well- appearing, NAD EYES: normal conjunctivae, no scleral icterus ENT: external ear and nose normal, MMM, cheeks are flushed NECK: trachea midline RESPIRATORY: clear to auscultation bilaterally, no crackles, rales or wheezes, normal respiratory effort CARDIOVASCULAR: regular rate and rhythm, S1 and 2 heard without murmurs, ga llops or rubs, no JVD, no peripheral edema CHEST: inspection of chest was normal GASTROINTESTINAL: soft, nontender, ND, no guarding MUSCULOSKELETAL: strength 5/5 throughout, head is normocephalic and atraumatic, neck supple, no LAD SKIN: warm and dry NEUROLOGIC: CN 2-12 grossly intact, no sensory deficit, normal cognition, normal speech, no tremor PSYCHIATRIC: alert cooperative and oriented to person, place and time. Euthymic mood, makes good eye contact, language grossly intact, recent and remote memory grossly intact. Results & Data Results & Data ([facility]) Vital Signs (Past 12 Hours) Vital Signs Temp Pulse Pulse Resp BP Pulse Ox O2 Del Method 08/06/22 10:00 92 H 08/06/22 11:12 36.9 C 78 16 85/54 L 94 Room Air 08/06/22 07:02 36.8 C 95 H 18 92/56 L 92 Room Air 08/06/22 05:40 37.4 C 96 H 90/57 L 08/06/22 04:15 38.0 C H 111 H 20 84/52 L 92 Room Air Laboratory Results Short CBC 08/05/22 08/06/22 Range/Units 16:43 09:02 WBC 0.96 L* 0.83 L* (4.8-10.8) K/ul Hgb 14.0 12.3 L (14.0-18.0) g/dl Hct 38.8 L 34.4 L (40.1-51.0) % Plt Count 126 L 93 L (130-400) K/uL BMP 08/05/22 08/05/22 08/06/22 16:43 22:36 09:02 Sodium 129 L 132 L 136 Potassium 4.3 4.0 Chloride 97 L 103 Carbon Dioxide 26 28 BUN 10 14 Creatinine 1.13 1.16 Glucose 99 127 H Calcium 9.5 9.2 Liver Function 08/05/22 08/05/22 08/06/22 Range/Units 16:43 16:45 09:02 Total Bilirubin 1.1 H 1.0 (0.2-1.0) mg/dl Direct Bilirubin 0.4 H (0-0.2) mg/dl AST 16 18 (13-39) U/L ALT 30 31 (7-52) U/L Alkaline Phosphatase 64 53 (34-104) U/L Albumin 4.8 4.0 (3.4-5.0) gm/dl Urine 08/05/22 Range/Units 17:45 Urine Color Yellow Urine Appearance Clear (Clear) Urine pH 6.0 (4.5-7.5) Ur Specific [place] 1.010 (1.000-1.030) Urine Protein Negative (Negative) Urine Glucose (UA) Negative (Negative) Medications Administered Current Inpatient Medications Acetaminophen (Acetaminophen 325 Mg Tab) 650 mg PO Q4H PRN PRN Reason: Pain or Fever Stop: 09/04/22 22:28 Last Admin: 08/06/22 04:38 Dose: 650 mg Allopurinol (Allopurinol 300 Mg Tab) 300 mg PO DAILY [facility] Stop: 09/05/22 08:59 Last Admin: 08/06/22 09:07 Dose: 300 mg Apixaban (Apixaban 2.5 Mg Tab) 2.5 mg PO BID [facility] Stop: 09/05/22 08:59 Last Admin: 08/06/22 09:07 Dose: 2.5 mg Digoxin (Digoxin 0.125 Mg Tab) 0.125 mg PO DAILY@1600 [facility] Stop: 09/05/22 15:59 Promethazine HCl 6.25 mg/ (Sodium Chloride) 50.25 mls @ 201 mls/hr IV Q6H PRN PRN Reason: Nausea And Vomiting Stop: 09/04/22 22:28 Cefepime HCl 2,000 mg/ Syringe 20 mls @ 5 mls/min IV Q8H [facility]; Protocol Stop: 08/08/22 03:59 Last Admin: 08/06/22 13:23 Dose: 5 mls/min Daptomycin 350 mg/ Syringe 7 mls @ 3.5 mls/min IV Q24H [facility]; Protocol Stop: 08/08/22 20:59 Lisinopril (Lisinopril 2.5 Mg Tab) 2.5 mg PO DAILY [facility] Stop: 09/05/22 08:59 Last Admin: 08/06/22 09:10 Dose: Not Given Senna/Docusate Sodium (Docusate Sodium/Senna 50/8.6mg Tab) 1 tab PO QAM [facility] Stop: 09/04/22 23:44 Last Admin: 08/06/22 09:08 Dose: Not Given
[2022-08-06] MEDS ORDERED: LACTATED RINGER'S 1,000 ML IV ONE ×2 (15:51→19:11)
[2022-08-06] MEDS: DIGOXIN 0.125 MG TAB PO SCH (16:56)
[2022-08-06] MEDS ORDERED: ACETAMINOPHEN 500 MG TAB PO STA (19:22)
[2022-08-06 20:08] LABS: Hematocrit (blood only) 31.6 % (40.1-51.0); Hemoglobin 11.3 g/dl (14.0-18.0); Mean Corpuscular Hgb Conc 35.8 g/dL (32.0-36.0); Mean Corpuscular Volume 83.8 fL (80.0-100.0); Mean Platelet Volume 10.1 fL (9.4-12.4); Platelet Count 82 K/uL (130-400); RDW Coefficient of Variation 12.4 % (11.5-14.5); RDW Standard Deviation 37.9 fL (36.4-46.3); Red Blood Count 3.77 M/uL (4.63-6.08); White Blood Count 0.67 K/ul (4.8-10.8)
[2022-08-06 20:15] LABS: BUN Creatinine Ratio 13.4 (10-20); Calcium 8.6 mg/dl (8.5-10.1); Creatinine Clr Calc Pharmacy 74.3 ml/min; Est GFR (Non-African American) 80.2 ml/min; Potassium 3.8 mmol/L (3.5-5.1)
[2022-08-06 20:26] LABS: Dohle Bodies 1+
[2022-08-06 20:28] LABS: Basophils # (auto) 0.01 K/uL (0-0.2); Basophils % (auto) 1.5 %; Eosinophils # (auto) 0.02 K/uL (0-0.50); Immature Granulocytes # (auto) 0.02 K/uL (0.00-0.02); Lymphocytes # (auto) 0.34 K/uL (1.2-3.4); Lymphocytes % (auto) 50.7 %; Monocytes # (auto) 0.25 K/uL (0.24-0.82); Monocytes % (auto) 37.3 %; Neutrophils # (auto) 0.03 K/uL (1.4-6.5); Neutrophils % (auto) 4.5 %
[2022-08-06] MEDS: DAPTOmycin 350 MG in SYRINGE 0 ML IV SCH (20:28)
[2022-08-07] MEDS: CEFEPIME 2,000 MG in SYRINGE 0 ML IV SCH ×3 (03:50→20:37)
[2022-08-07 06:13] LABS: BUN Creatinine Ratio 13.5 (10-20); Calcium 8.5 mg/dl (8.5-10.1); Creatinine Clr Calc Pharmacy 96.5 ml/min; Est GFR (African American) 118.4 ml/min; Est GFR (Non-African American) 102.2 ml/min; Potassium 3.7 mmol/L (3.5-5.1)
[2022-08-07 06:35] LABS: Hematocrit (blood only) 31.5 % (40.1-51.0); Hemoglobin 11.1 g/dl (14.0-18.0); Mean Corpuscular Hemoglobin 29.5 pg (25.0-34.0); Mean Corpuscular Hgb Conc 35.2 g/dL (32.0-36.0); Mean Corpuscular Volume 83.8 fL (80.0-100.0); Mean Platelet Volume 10.2 fL (9.4-12.4); Platelet Count 89 K/uL (130-400); RDW Coefficient of Variation 12.5 % (11.5-14.5); RDW Standard Deviation 38.3 fL (36.4-46.3); Red Blood Count 3.76 M/uL (4.63-6.08); White Blood Count 0.75 K/ul (4.8-10.8)
[2022-08-07 07:06] LABS: Basophils # (auto) 0.02 K/uL (0-0.2); Basophils % (auto) 2.7 %; Eosinophils # (auto) 0.02 K/uL (0-0.50); Eosinophils % (auto) 2.7 %; Immature Granulocytes # (auto) 0.04 K/uL (0.00-0.02); Immature Granulocytes % (auto) 5.3 %; Lymphocytes # (auto) 0.36 K/uL (1.2-3.4); Monocytes # (auto) 0.27 K/uL (0.24-0.82); Neutrophils # (auto) 0.04 K/uL (1.4-6.5); Neutrophils % (auto) 5.3 %
[2022-08-07] MEDS: APIXABAN 2.5 MG TAB PO SCH ×2 (08:40→20:37)
[2022-08-07] MEDS: DOCUSATE SODIUM/SENNA 50/8.6MG TAB PO SCH (08:41)
[2022-08-07] MEDS: allopurinoL 300 MG TAB PO SCH (10:51)
--- NOTE | 2022-08-07 14:18 | Hospitalist Progress Note ---
Date of Service August 07, 2022 Assessment & Plan (1) Sepsis: Plan: Resuscitated, however, remains hypotensive. Will institute LR drip now and continue to monitor heart rate and blood pressure. Hold lisinopril. Continue broad-spectrum antibiotics and continue PCU monitoring. (2) Fever and neutropenia: Plan: Fever in last two days. No clear source. Cont broad antibiotic coverage now with Daptomycin and Cefepime. Baseline CK is normal. ANC improved to 400 this morning. Hold off on Neupogen at this time. (3) Hodgkin's lymphoma: Plan: on treatment with Adriamycin, vinblastine and Dacarbazine last given approx 10- 14 days ago. That was his first treatment. Cont per oncology who is aware of his current admission. (4) Factor V Leiden mutation: Plan: on apixaban for DVT prophylaxis. No prior thrombotic events but is high risk for this now. (5) Hyperuricemia: Plan: Continues on allopurinol (6) Drug-induced systemic lupus erythematosus: Plan: history of this. (7) DVT prophylaxis: Plan: Eliquis Full Code Dipso-to home when sepsis is resolved and we have achieved source control. Likely tomorrow depending on his blood pressure at that time. [facility]ated Discharge Date Admission Date: August 05, 2022 Subjective 21 yo M with febrile neutropenia without clear source. He is a chemo patient with Hogkin's lymphoma with last chemo treatment 10 days ago. Denies chills today afebrile overnight Tolerating p.o. Overall feels better reportedly ANC up to 400 from 300 yesterday. Denies lightheadedness or other pain or issues. Review of Systems Review of Systems: all systems were reviewed and negative except as indicated on subjective above. Physical Exam Physical Exam: CONSTITUTIONAL: WNWD, vitals as above, generally well- appearing, NAD EYES: normal conjunctivae, no scleral icterus ENT: external ear and nose normal, MMM, cheeks are flushed NECK: trachea midline RESPIRATORY: clear to auscultation bilaterally, no crackles, rales or wheezes, normal respiratory effort CARDIOVASCULAR: regular rate and rhythm, S1 and 2 heard without murmurs, gallops or rubs, no JVD, no peripheral edema CHEST: inspection of chest was normal GASTROINTESTINAL: soft, nontender, ND, no guarding MUSCULOSKELETAL: strength 5/5 throughout, head is normocephalic and atraumatic, neck supple, no LAD SKIN: warm and dry NEUROLOGIC: CN 2-12 grossly intact, no sensory deficit, normal cognition, normal speech, no tremor PSYCHIATRIC: alert cooperative and oriented to person, place and time. Euthymic mood, makes good eye contact, language grossly intact, recent and remote memory grossly intact. Results & Data Results & Data ([facility]) Vital Signs (Past 12 Hours) Vital Signs Temp Pulse Pulse Pulse Resp BP Pulse Ox 08/07/22 12:01 37.1 C 95 H 16 90/61 L 92 08/07/22 08:00 83 08/07/22 06:46 37.1 C 97 H 16 94/55 L 92 08/07/22 02:50 37.0 C 89 16 97/61 L 90 O2 Del Method 08/07/22 12:01 08/07/22 08:00 08/07/22 06:46 Room Air 08/07/22 02:50 Room Air Laboratory Results Short CBC 08/06/22 08/07/22 Range/Units 19:40 05:24 WBC 0.67 L* 0.75 L* (4.8-10.8) K/ul Hgb 11.3 L 11.1 L (14.0-18.0) g/dl Hct 31.6 L 31.5 L (40.1-51.0) % Plt Count 82 L 89 L (130-400) K/uL BMP 08/06/22 08/07/22 19:40 05:24 Sodium 132 L 135 L Potassium 3.8 3.7 Chloride 102 104 Carbon Dioxide 25 24 BUN 17 14 Creatinine 1.27 1.04 Glucose 94 98 Calcium 8.6 8.5 Cardiac Enzymes 08/07/22 Range/Units 05:24 Total Creatine Kinase 27 L (30-223) U/L Medications Administered Current Inpatient Medications Acetaminophen (Acetaminophen 325 Mg Tab) 650 mg PO Q4H PRN PRN Reason: Pain or Fever Stop: 09/04/22 22:28 Last Admin: 08/06/22 04:38 Dose: 650 mg Allopurinol (Allopurinol 300 Mg Tab) 300 mg PO DAILY [facility] Stop: 09/05/22 08:59 Last Admin: 08/07/22 10:51 Dose: 300 mg Apixaban (Apixaban 2.5 Mg Tab) 2.5 mg PO BID [facility] Stop: 09/05/22 08:59 Last Admin: 08/07/22 08:40 Dose: 2.5 mg Digoxin (Digoxin 0.125 Mg Tab) 0.125 mg PO DAILY@1600 [facility] Stop: 09/05/22 15:59 Last Admin: 08/06/22 16:56 Dose: 0.125 mg Promethazine HCl 6.25 mg/ (Sodium Chloride) 50.25 mls @ 201 mls/hr IV Q6H PRN PRN Reason: Nausea And Vomiting Stop: 09/04/22 22:28 Cefepime HCl 2,000 mg/ Syringe 20 mls @ 5 mls/min IV Q8H [facility]; Protocol Stop: 08/08/22 03:59 Last Admin: 08/07/22 12:01 Dose: 5 mls/min Daptomycin 350 mg/ Syringe 7 mls @ 3.5 mls/min IV Q24H [facility]; Protocol Stop: 08/08/22 20:59 Last Admin: 08/06/22 20:28 Dose: 3.5 mls/min Lactated Ringer's (Lr) 1,000 mls @ 125 mls/hr IV .Q8H [facility] Stop: 08/08/22 06:14 Senna/Docusate Sodium (Docusate Sodium/Senna 50/8.6mg Tab) 1 tab PO QAM [facility] Stop: 09/04/22 23:44 Last Admin: 08/07/22 08:41 Dose: Not Given
[2022-08-07] MEDS: LACTATED RINGER'S 1,000 ML IV SCH ×2 (14:37→22:01)
[2022-08-07] MEDS: DIGOXIN 0.125 MG TAB PO SCH (16:04)
[2022-08-07] MEDS: ACETAMINOPHEN 325 MG TAB PO PRN (19:28)
[2022-08-07] MEDS: DAPTOmycin 350 MG in SYRINGE 0 ML IV SCH (20:37)
[2022-08-08 08:20] LABS: Hematocrit (blood only) 33.2 % (40.1-51.0); Hemoglobin 11.6 g/dl (14.0-18.0); Mean Corpuscular Hemoglobin 29.6 pg (25.0-34.0); Mean Corpuscular Hgb Conc 34.9 g/dL (32.0-36.0); Mean Corpuscular Volume 84.7 fL (80.0-100.0); Platelet Count 112 K/uL (130-400); RDW Coefficient of Variation 12.9 % (11.5-14.5); RDW Standard Deviation 39.4 fL (36.4-46.3); Red Blood Count 3.92 M/uL (4.63-6.08); White Blood Count 1.32 K/ul (4.8-10.8)
[2022-08-08 09:10] LABS: BUN Creatinine Ratio 9.7 (10-20); Calcium 8.8 mg/dl (8.5-10.1); Creatinine Clr Calc Pharmacy 109.1 ml/min; Est GFR (African American) 135.5 ml/min; Est GFR (Non-African American) 116.9 ml/min; Potassium 4.1 mmol/L (3.5-5.1)
[2022-08-08] MEDS: allopurinoL 300 MG TAB PO SCH (09:13)
[2022-08-08] MEDS: DOCUSATE SODIUM/SENNA 50/8.6MG TAB PO SCH (09:13)
[2022-08-08] MEDS: APIXABAN 2.5 MG TAB PO SCH (09:13)
[2022-08-08 09:27] LABS: ALC (manual) 0.58 K/uL (1.2-3.4); ANC (manual) 0.25 K/uL (1.4-6.5); Basophils # (manual) 0.03 K/uL (0-0.2); Basophils % (manual) 2 %; Eosinophils # (manual) 0.05 K/uL (0-0.50); Eosinophils % (manual) 4 %; Lymphocytes # (manual) 0.58 K/uL (1.2-3.4); Lymphocytes % (manual) 44 %; Metamyelocytes # (manual) 0.11 K/uL (0-0); Metamyelocytes % (manual) 8 %; Monocytes # (manual) 0.26 K/uL (0.24-0.82); Monocytes % (manual) 20 %; Myelocytes # (manual) 0.04 K/uL (0-0); Myelocytes % (manual) 3 %; Neutrophils # (manual) 0.25 K/uL (1.4-6.5); Neutrophils % (manual) 19 %; Ovalocytes 1+; Polychromasia 1+; Promyelocytes # (manual) 0.01 K/uL (0-0); Promyelocytes % (manual) 1 %
[2022-08-08] MEDS ORDERED: levoFLOXacin 750 MG TAB PO STA (12:22)
--- NOTE | 2022-08-08 12:29 | Discharge Summary ---
Discharge Summary Date of Service August 08, 2022 Notes For Next Care Provider -Febrile Neutropenia without clear source found -ANC improved to 250 by day of discharge with no fevers or symptoms for >24 hours. -Has a close follow-up with Dr. Kay on 08/09 who is aware of admission -on Levaquin for additional week Medication Changes From Visit Levaquin 750mg PO daily x 6 days (first dose given on day of discharge)-to start 08/09 Admission HPI Per Admitting Provider History obtained from patient, family, and records. 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 Patient received chemotherapy for the first time last week. Tolerable nausea symptoms. Today, patient noted to be febrile at home. Patient denies chest pain, SOB, cough, abdominal pain, dysuria symptoms. Patient actually constipated. Usual A port redness as per patient. Patient has not received COVID-19 vaccination. 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 IV Cefepime administered at the ER. Medical History as above Surgical History : A port placement lymph node biopsy, modified Fontan proced ure, [place] repair, vessel shunt procedure Family History : Alcoholism, blood clots, DM, heart disease, rheumatoid arthritis Personal/Social history : Non-smoker, no EtOH intake, retail work at a [employer] Admission Exam Per Admitting Provider GENERAL: Comfortable, pleasant, no respiratory distress SKIN: Normal color, warm HEENT: [place] palpebral conjunctivae, no ptosis, dry buccal mucosa NECK : Supple, no tenderness CHEST : CTA, a port, right chest wall, no tenderness HEART : RRR, no obvious murmurs ABDOMEN: Some distention, nontender EXTREMITIES : No LE swelling/tenderness, no other conspicuous deformities noted NEUROLOGIC : Coherent, no facial asymmetry, no other gross focality Principal Dx & Hospital Course #1 = Principal Diagnosis (1) Sepsis: Resuscitated and remained hypotensive for a couple of days, and then this improved with some persistent IVF. Lisinopril was held temporarily. He improved with antibiotics. There was no evidence of a confirmed source of infection. (2) Antineoplastic chemotherapy induced pancytopenia: Antineoplastic chemotherapy induced pancytopenia. Fever in last two days. No clear source. Cont broad antibiotic coverage with Daptomycin and Cefepime. Baseline CK was checked and normal. ANC improved to 400 this morning. Hold off on Neupogen at this time. (3) Hyponatremia: Present on arrival. Resolved. (4) Hodgkin's lymphoma: on treatment with Adriamycin, vinblastine and Dacarbazine last given approx 10- 14 days ago. That was his first treatment. Cont per oncology who is aware of his current admission. (5) Factor V Leiden mutation: on apixaban for DVT prophylaxis. No prior thrombotic events but is high risk for this now. (6) Hyperuricemia: Continues on allopurinol (7) Drug-induced systemic lupus erythematosus: history of this. Discharge Exam CONSTITUTIONAL: WNWD, vitals as above, generally well-appearing, NAD EYES: normal conjunctivae, no scleral icterus ENT: external ear and nose normal, MMM, cheeks are flushed NECK: trachea midline RESPIRATORY: clear to auscultation bilaterally, no crackles, rales or wheezes, normal respiratory effort CARDIOVASCULAR: regular rate and rhythm, S1 and 2 heard without murmurs, gallops or rubs, no JVD, no peripheral edema CHEST: inspection of chest was normal GASTROINTESTINAL: soft, nontender, ND, no guarding MUSCULOSKELETAL: strength 5/5 throughout, head is normocephalic and atraumatic, neck supple, no LAD, ambulatory SKIN: warm and dry NEUROLOGIC: CN 2-12 grossly intact, no sensory deficit, normal cognition, normal speech, no tremor PSYCHIATRIC: alert cooperative and oriented to person, place and time. Euthymic mood, makes good eye contact, language grossly intact, recent and remote memory grossly intact. Updated Medication List Medication Instructions Recorded Confirmed Type allopurinol 100 mg tablet 300 mg PO DAILY 08/05/22 08/05/22 History apixaban 2.5 mg tablet (Eliquis) 2.5 mg PO BID 08/05/22 08/05/22 History digoxin 125 mcg (0.125 mg) tablet 125 mcg PO DAILY 08/05/22 08/05/22 History lidocaine-prilocaine 2.5 %-2.5 % 08/05/22 History topical cream lisinopril 2.5 mg tablet 2.5 mg PO DAILY 08/05/22 08/05/22 History levofloxacin 750 mg tablet 750 mg PO DAILY #6 tabs 08/08/22 Rx Hospital Stay Data Consultations 08/05/22 18:48 ED Decision to Admit Stat 08/05/22 18:57 ED Decision to Admit Stat Pending Results Patient Have Any Pending Studies at Discharge: Yes Discharge Instructions Given to Patient (Per Discharging Provider) Please take all medications as instructed on discharge list below. You are being given a general antibiotic to take for the next few days. There was no source identified for your fever. If you have a new fever or your symptoms come back again, please seek immediate medical attention. While your white blood cell count is too low, you are at higher risk from infection. You are still neutropenic, so consider additional protections such as isolating away from those who are sick and frequent hand washing with mask wearing where appropriate. It was a pleasure taking care of you! Please call if you have any questions or problems. You can reach a [facility] hospitalist on duty at [facility] 24 hours a day by calling [phone]. Take care of yourself. Charity Gardner, [facility] Hospitalist Total Time Total Time Spent Total Time Spent (In Minutes): 60
[2022-08-08 13:31] LABS: Cdiff Antigen Positive; Cdiff Toxin A+B Negative Cdiff Toxin (Negative)
== END 2022-08-08 16:51 | disposition home or self-care (01) | DRG 872 ==
LOC: ED 16:20 → 2W 20:16 → 2S 08-06 20:42

== ENCOUNTER 2023-02-03 14:20 | Inpatient (IN) ==
[2023-02-03] MEDS ORDERED: SODIUM CHLORIDE 0.9% 1000ML 500 ML IV ONE ×2 (15:20→17:20)
[2023-02-03] MEDS ORDERED: CEFEPIME 2,000 MG/20 ML VIAL IV STA (15:24)
--- NOTE | 2023-02-03 15:32 | Emergency Department Note ---
History of Present Illness General Chief complaint: Fever Stated complaint: FEVER,COUGH,CHEMO ON FRI Time Seen by Provider: 02/03/23 15:08 Source: patient, family (Mother who is at the bedside), RN notes reviewed and old records reviewed Mode of arrival: ambulatory Limitations: no limitations History of Present Illness This patient is a 22-year-old male who comes in complaining of fever cough and sore throat. He does have a history of Hodgkin's lymphoma and is on chemo his last dose of chemo was on is followed by Dr. Cruz. He had a temperature of 102.7 yesterday and has been ranging 100 101 this morning. Grandmother was just diagnosed with parainfluenza. Denies nausea vomiting his throat is just scratchy denies that he feels short of breath he has a dry cough does not feel achy. no runny nose. no rash. He does have a port in place which has had no redness. Home Medications Medication Instructions Recorded Confirmed Type allopurinol 100 mg tablet 300 mg PO DAILY 08/05/22 02/03/23 History apixaban 2.5 mg tablet (Eliquis) 2.5 mg PO BID 08/05/22 02/03/23 History digoxin 125 mcg (0.125 mg) tablet 125 mcg PO DAILY 08/05/22 02/03/23 History lidocaine-prilocaine 2.5 %-2.5 % See Rx Instructions .Route .COMPLEX 08/05/22 02/03/23 History topical cream lisinopril 2.5 mg tablet 2.5 mg PO DAILY 08/05/22 02/03/23 History levofloxacin 500 mg tablet 500 mg PO DAILY 02/03/23 02/03/23 History Allergies Allergy/AdvReac Type Severity Reaction Status Date / Time cefdinir Allergy Mild Verified 11/21/20 10:57 Penicillins Allergy Mild Verified 11/21/20 10:58 Past Med/Surg History Medical History (Updated 02/03/23 @ 19:17 by Venancio Henriquez MD) CKD (chronic kidney disease), stage II Drug-induced systemic lupus erythematosus Factor V Leiden mutation Hodgkin's lymphoma Hyperuricemia Hypoplastic left heart s/p repair Lupus Splenomegaly Thrombocytopenia due to hypersplenism Surgical History (Updated 02/03/23 @ 17:50 by Zoe Petersen PA-C) History of fenestrated Fontan procedure Hx of cardiac cath Family History Other Alcohol abuse Factor 5 Leiden mutation, heterozygous Social History Smoking Status: Never smoker Hx Alcohol Use: No Hx Substance Use: No Preferred Language: Sudanese Communication Ability: Effective Beliefs That Will Affect Care: None marital status: Single Current Living Situation: Family Feels Safe at Home: Yes Assistive Devices: None Review of Systems A total of 10 systems reviewed and were otherwise negative Physical Exam Vital Signs Vital Signs - 24 hr 02/03/23 14:24 02/03/23 14:50 02/03/23 14:53 Temperature 37.2 C 37 C Temperature Source Temporal Artery Scan Oral Pulse Rate 121 H 113 H Pulse Rate [Apical] Pulse Rate from SpO2 Sensor Pulse Rhythm Respiratory Rate 19 16 Respiratory Effort / Characteristics Non-Labored Spontaneous Respiratory Depth Normal Respiratory Pattern Regular Blood Pressure 117/80 Blood Pressure [Right Arm] 99/67 L Blood Pressure Mean 92 Blood Pressure Mean [Right Arm] 77 Pulse Oximetry 88 L 94 Oxygen Delivery Method Room Air Nasal Cannula Oxygen Flow Rate 2 Sepsis Recent Fever Within 48 Hours Yes Sepsis New/Unexplained Change in Mental Status No Sepsis Action Taken by Nursing No Action Required 02/03/23 15:51 02/03/23 14:46 02/03/23 14:47 Temperature Temperature Source Pulse Rate 105 H 108 H Pulse Rate [Apical] Pulse Rate from SpO2 Sensor 107 H Pulse Rhythm Regular Respiratory Rate 15 15 Respiratory Effort / Characteristics Respiratory Depth Respiratory Pattern Blood Pressure 99/67 L Blood Pressure [Right Arm] Blood Pressure Mean 77 Blood Pressure Mean [Right Arm] Pulse Oximetry 94 93 Oxygen Delivery Method Nasal Cannula Oxygen Flow Rate 2 Sepsis Recent Fever Within 48 Hours Sepsis New/Unexplained Change in Mental Status Sepsis Action Taken by Nursing 02/03/23 14:50 02/03/23 15:00 02/03/23 15:00 Temperature Temperature Source Pulse Rate 97 H 94 H Pulse Rate [Apical] Pulse Rate from SpO2 Sensor 97 H 95 H Pulse Rhythm Respiratory Rate 19 15 Respiratory Effort / Characteristics Respiratory Depth Respiratory Pattern Blood Pressure 83/56 L Blood Pressure [Right Arm] Blood Pressure Mean 65 Blood Pressure Mean [Right Arm] Pulse Oximetry 94 92 Oxygen Delivery Method Oxygen Flow Rate Sepsis Recent Fever Within 48 Hours Sepsis New/Unexplained Change in Mental Status Sepsis Action Taken by Nursing 02/03/23 15:10 02/03/23 15:20 02/03/23 15:30 Temperature Temperature Source Pulse Rate 108 H 104 H Pulse Rate [Apical] Pulse Rate from SpO2 Sensor 108 H 104 H Pulse Rhythm Respiratory Rate 16 18 Respiratory Effort / Characteristics Respiratory Depth Respiratory Pattern Blood Pressure 103/74 Blood Pressure [Right Arm] Blood Pressure Mean 83 Blood Pressure Mean [Right Arm] Pulse Oximetry 94 92 Oxygen Delivery Method Oxygen Flow Rate Sepsis Recent Fever Within 48 Hours Sepsis New/Unexplained Change in Mental Status Sepsis Action Taken by Nursing 02/03/23 15:30 02/03/23 15:40 02/03/23 15:50 Temperature Temperature Source Pulse Rate 103 H 100 H 104 H Pulse Rate [Apical] Pulse Rate from SpO2 Sensor 103 H 102 H 104 H Pulse Rhythm Respiratory Rate 17 14 15 Respiratory Effort / Characteristics Respiratory Depth Respiratory Pattern Blood Pressure Blood Pressure [Right Arm] Blood Pressure Mean Blood Pressure Mean [Right Arm] Pulse Oximetry 92 93 93 Oxygen Delivery Method Oxygen Flow Rate Sepsis Recent Fever Within 48 Hours Sepsis New/Unexplained Change in Mental Status Sepsis Action Taken by Nursing 02/03/23 16:00 02/03/23 16:00 02/03/23 16:10 Temperature Temperature Source Pulse Rate 109 H 105 H Pulse Rate [Apical] Pulse Rate from SpO2 Sensor 108 H 104 H Pulse Rhythm Respiratory Rate 14 16 Respiratory Effort / Characteristics Respiratory Depth Respiratory Pattern Blood Pressure 112/65 Blood Pressure [Right Arm] Blood Pressure Mean 80 Blood Pressure Mean [Right Arm] Pulse Oximetry 94 95 Oxygen Delivery Method Oxygen Flow Rate Sepsis Recent Fever Within 48 Hours Sepsis New/Unexplained Change in Mental Status Sepsis Action Taken by Nursing 02/03/23 16:20 02/03/23 16:30 02/03/23 16:30 Temperature Temperature Source Pulse Rate 98 H 97 H Pulse Rate [Apical] Pulse Rate from SpO2 Sensor 99 H 97 H Pulse Rhythm Respiratory Rate 16 18 Respiratory Effort / Characteristics Respiratory Depth Respiratory Pattern Blood Pressure 95/58 L Blood Pressure [Right Arm] Blood Pressure Mean 70 Blood Pressure Mean [Right Arm] Pulse Oximetry 94 96 Oxygen Delivery Method Oxygen Flow Rate Sepsis Recent Fever Within 48 Hours Sepsis New/Unexplained Change in Mental Status Sepsis Action Taken by Nursing 02/03/23 16:40 02/03/23 16:50 02/03/23 17:00 Temperature Temperature Source Pulse Rate 95 H 95 H Pulse Rate [Apical] Pulse Rate from SpO2 Sensor 95 H 95 H Pulse Rhythm Respiratory Rate 14 16 Respiratory Effort / Characteristics Respiratory Depth Respiratory Pattern Blood Pressure 89/54 L Blood Pressure [Right Arm] Blood Pressure Mean 65 Blood Pressure Mean [Right Arm] Pulse Oximetry 97 97 Oxygen Delivery Method Oxygen Flow Rate Sepsis Recent Fever Within 48 Hours Sepsis New/Unexplained Change in Mental Status Sepsis Action Taken by Nursing 02/03/23 17:00 02/03/23 17:25 02/03/23 18:00 Temperature Temperature Source Pulse Rate 98 H Pulse Rate [Apical] 96 H Pulse Rate from SpO2 Sensor 99 H Pulse Rhythm Respiratory Rate 16 15 18 Respiratory Effort / Characteristics Respiratory Depth Respiratory Pattern Blood Pressure Blood Pressure [Right Arm] 102/68 104/67 Blood Pressure Mean Blood Pressure Mean [Right Arm] 79 79 Pulse Oximetry 93 94 92 Oxygen Delivery Method Nasal Cannula Oxygen Flow Rate 2 Sepsis Recent Fever Within 48 Hours Sepsis New/Unexplained Change in Mental Status Sepsis Action Taken by Nursing 02/03/23 18:46 Temperature Temperature Source Pulse Rate 89 Pulse Rate [Apical] Pulse Rate from SpO2 Sensor Pulse Rhythm Respiratory Rate Respiratory Effort / Characteristics Respiratory Depth Respiratory Pattern Blood Pressure Blood Pressure [Right Arm] Blood Pressure Mean Blood Pressure Mean [Right Arm] Pulse Oximetry Oxygen Delivery Method Oxygen Flow Rate Sepsis Recent Fever Within 48 Hours Sepsis New/Unexplained Change in Mental Status Sepsis Action Taken by Nursing General: Well developed well nourished slender young male who appears in no acu te distress, breathing comfortably on room air. Normal speech HEENT: Normal cephalic atraumatic. Pupils are equal round and reactive to light. Extraocular movements are intact. Oropharynx is pink with moist mucous membranes. No swelling of the mouth lips or tongue. Neck: Supple with a midline trachea. No meningeal signs or stiffness, no JVD or bruits. No Stridor. Chest: Clear to auscultation bilaterally. No wheezes or rhonchi. No increased work of breathing. A port in right chest without redness Heart: Regular rate and rhythm without murmurs or gallops. Abdomen: Soft nontender, nondistended without rebound guarding or rigidity. Extremities: No cyanosis clubbing or edema. No calf tenderness or assymetry Spine/Back. Non tender to palpation. No CVA tenderness Skin: Good turgor without rashes. Neurologic exam: Cranial nerves two through 12 are intact. Motor and sensation are intact and symmetrical throughout. Course Administered Medications Vancomycin HCl 1,500 mg/ (Sodium Chloride) 530 mls @ 200 mls/hr IV NOW ONE; Protocol Stop: 02/03/23 21:38 Last Admin: 02/03/23 19:02 Dose: 200 mls/hr Documented By: CLARA Discontinued Medications Sodium Chloride (Nss 1000ml) 500 mls @ 999 mls/hr IV .Q31M ONE Stop: 02/03/23 15:50 Last Infusion: 02/03/23 16:27 Dose: 0 mls/hr Documented By: Admin: 02/03/23 15:53 Dose: 999 mls/hr Documented By: BREANNA Cefepime HCl (Maxipime) 2,000 mg in 20 mls @ 5 mls/min IV NOW STA; Protocol Stop: 02/03/23 15:27 Last Admin: 02/03/23 15:53 Dose: 5 mls/min Documented By: BREANNA Sodium Chloride (Nss) 500 mls @ 999 mls/hr IV .Q31M ONE Stop: 02/03/23 17:45 Last Infusion: 02/03/23 18:04 Dose: 0 mls/hr Documented By: Admin: 02/03/23 17:25 Dose: 999 mls/hr Documented By: BREANNA Sodium Chloride (Nss 1000ml) 500 mls @ 999 mls/hr IV .Q31M ONE Stop: 02/03/23 17:50 Last Infusion: 02/03/23 18:04 Dose: 0 mls/hr Documented By: Admin: 02/03/23 17:25 Dose: 999 mls/hr Documented By: BREANNA Critical Care Time Critical Care Time: Yes Total Critical Care Time: 50 Due to the patient's neutropenic fever, low blood pressure, need for IV fluids, frequent reassessment IV antibiotics, I have personally spent greater than 50 minutes of critical care time in the direct management of this patient. This includes bedside care, interpretation of diagnostic studies, and testing, discussion with consultants, patient, and family members, and other required patient management activities. This 50 minutes is in excess of all separately billable procedures. Medical Decision Making Differential Diagnosis Sepsis, neutropenic fever, viral illness, pneumonia, CHF, cancer or chemotherapy P complication, electrolyte or metabolic abnormality, COVID Medical Records Attestation: I reviewed the patient's medical records. Home Medications Current Medication List: was personally reviewed by me Laboratory Data Attestation: I reviewed the patient's lab results. 02/03/23 15:54 02/03/23 15:54 Lab Results 02/03/23 02/03/23 02/03/23 Range/Units 15:38 15:54 15:54 WBC 0.75 L* (4.8-10.8) K/ul RBC 4.24 L (4.70-6.10) M/uL Hgb 12.0 L (14.0-18.0) g/dl Hct 35.3 L (42.0-52.0) % MCV 83.3 (80.0-100.0) fL MCH 28.3 (25.0-34.0) pg MCHC 34.0 (32.0-36.0) g/dL RDW Std Deviation 50.5 H (36.4-46.3) fL RDW Coeff of Servando 16.7 H (11.5-14.5) % Plt Count 49 L (130-400) K/uL Neutrophils % (Manual) 32 % Lymphocytes % (Manual) 51 % Reactive Lymphs % (Man) 14 % Monocytes % (Manual) 3 % Basophils % (Manual) 1 % Neutrophils # (Manual) 0.24 L (1.40-6.50) K/uL Total Absolute Neuts 0.24 L* (1.4-6.5) K/uL Lymphocytes # (Manual) 0.38 L (1.2-3.4) K/uL Reactive Lymphs # 0.11 K/uL Total Abs Lymphocytes 0.49 L (1.2-3.4) K/uL Monocytes # (Manual) 0.02 L (0.11-0.59) K/uL Basophils # (Manual) 0.01 (0-0.2) K/uL Tear Drop Cells 2+ Ovalocytes 1+ Sodium 136 (136-145) mmol/L Potassium 4.2 (3.5-5.1) mmol/L Chloride 105 (98-107) mmol/L Carbon Dioxide 24 (21-32) mmol/L Anion Gap 7 (3-11) BUN 14 (6-23) mg/dl Creatinine 0.99 (0.6-1.4) mg/dl Est Cr Clr Drug Dosing 97.3 ml/min Est GFR ( Amer) 124.8 ml/min Est GFR (Non-Af Amer) 107.7 ml/min BUN/Creatinine Ratio 14.1 (10-20) Glucose 70 (70-99(Fasting)) mg/dl Lactate (0.4-2.0) mmol/L Calcium 9.7 (8.6-10.3) mg/dl Magnesium 2.1 (1.7-2.4) mg/dl Total Bilirubin 1.0 (0.2-1.0) mg/dl Direct Bilirubin 0.3 H (0-0.2) mg/dl AST 22 (13-39) U/L ALT 30 (7-52) U/L Alkaline Phosphatase 83 (34-104) U/L Troponin I High Sens 3.5 (0-20) pg/ml B-Natriuretic Peptide (0-100) pg/ml Total Protein 6.9 (6.0-8.3) gm/dl Albumin 4.5 (3.4-5.0) gm/dl Lipase 44 (11-82) U/L Procalcitonin (0-0.5) ng/ml Urine Color Urine Appearance (Clear) Urine pH (4.5-7.5) Ur Specific [place] (1.000-1.030) Urine Protein (Negative) Urine Glucose (UA) (Negative) Urine Ketones (Negative) Urine Blood (Negative) Urine Nitrite (Negative) Urine Bilirubin (Negative) Urine Urobilinogen (Negative) Ur Leukocyte Esterase (Negative) Urine WBC (Auto) (0-5) /hpf Urine RBC (Auto) (0-4) /hpf U Hyaline Cast (Auto) (0-5) /lpf U Epithel Cells (Auto) (0-5) /lpf Urine Bacteria (Auto) (Negative) Digoxin (0.8-2.0) ng/ml Adenovirus (PCR) Not Detected (NotDetected) B. pertussis DNA (PCR) Not Detected (NotDetected) B.parapertussis DNA PCR Not Detected (NotDetected) C. pneumoniae DNA (PCR) Not Detected (NotDetected) Coronavirus OC43 (PCR) Not Detected (NotDetected) Coronavirus HKU1 (PCR) Not Detected (NotDetected) Coronavirus 229E (PCR) Not Detected (NotDetected) SARS-CoV-2 (PCR) Not Detected (NotDetected) Coronavirus NL63 (PCR) Not Detected (NotDetected) Human Metapneumovir PCR Not Detected (NotDetected) Influenza Type A (PCR) Not Detected (NotDetected) Influenza Type B (PCR) Not Detected (NotDetected) M. pneumoniae (PCR) Not Detected (NotDetected) Parainfluenza 1 (PCR) Not Detected (NotDetected) Parainfluenza 2 (PCR) Not Detected (NotDetected) Parainfluenza 3 (PCR) Not Detected (NotDetected) Parainfluenza 4 (PCR) Not Detected (NotDetected) RSV (PCR) Not Detected (NotDetected) Entero/Rhino (PCR) Not Detected (NotDetected) 02/03/23 02/03/23 02/03/23 Range/Units 15:54 15:54 15:54 WBC (4.8-10.8) K/ul RBC (4.70-6.10) M/uL Hgb (14.0-18.0) g/dl Hct (42.0-52.0) % MCV (80.0-100.0) fL MCH (25.0-34.0) pg MCHC (32.0-36.0) g/dL RDW Std Deviation (36.4-46.3) fL RDW Coeff of Servando (11.5-14.5) % Plt Count (130-400) K/uL Neutrophils % (Manual) % Lymphocytes % (Manual) % Reactive Lymphs % (Man) % Monocytes % (Manual) % Basophils % (Manual) % Neutrophils # (Manual) (1.40-6.50) K/uL Total Absolute Neuts (1.4-6.5) K/uL Lymphocytes # (Manual) (1.2-3.4) K/uL Reactive Lymphs # K/uL Total Abs Lymphocytes (1.2-3.4) K/uL Monocytes # (Manual) (0.11-0.59) K/uL Basophils # (Manual) (0-0.2) K/uL Tear Drop Cells Ovalocytes Sodium (136-145) mmol/L Potassium (3.5-5.1) mmol/L Chloride (98-107) mmol/L Carbon Dioxide (21-32) mmol/L Anion Gap (3-11) BUN (6-23) mg/dl Creatinine (0.6-1.4) mg/dl Est Cr Clr Drug Dosing ml/min Est GFR ( Amer) ml/min Est GFR (Non-Af Amer) ml/min BUN/Creatinine Ratio (10-20) Glucose (70-99(Fasting)) mg/dl Lactate 0.8 (0.4-2.0) mmol/L Calcium (8.6-10.3) mg/dl Magnesium (1.7-2.4) mg/dl Total Bilirubin (0.2-1.0) mg/dl Direct Bilirubin (0-0.2) mg/dl AST (13-39) U/L ALT (7-52) U/L Alkaline Phosphatase (34-104) U/L Troponin I High Sens (0-20) pg/ml B-Natriuretic Peptide (0-100) pg/ml Total Protein (6.0-8.3) gm/dl Albumin (3.4-5.0) gm/dl Lipase (11-82) U/L Procalcitonin 0.07 (0-0.5) ng/ml Urine Color Urine Appearance (Clear) Urine pH (4.5-7.5) Ur Specific [place] (1.000-1.030) Urine Protein (Negative) Urine Glucose (UA) (Negative) Urine Ketones (Negative) Urine Blood (Negative) Urine Nitrite (Negative) Urine Bilirubin (Negative) Urine Urobilinogen (Negative) Ur Leukocyte Esterase (Negative) Urine WBC (Auto) (0-5) /hpf Urine RBC (Auto) (0-4) /hpf U Hyaline Cast (Auto) (0-5) /lpf U Epithel Cells (Auto) (0-5) /lpf Urine Bacteria (Auto) (Negative) Digoxin 0.9 (0.8-2.0) ng/ml Adenovirus (PCR) (NotDetected) B. pertussis DNA (PCR) (NotDetected) B.parapertussis DNA PCR (NotDetected) C. pneumoniae DNA (PCR) (NotDetected) Coronavirus OC43 (PCR) (NotDetected) Coronavirus HKU1 (PCR) (NotDetected) Coronavirus 229E (PCR) (NotDetected) SARS-CoV-2 (PCR) (NotDetected) Coronavirus NL63 (PCR) (NotDetected) Human Metapneumovir PCR (NotDetected) Influenza Type A (PCR) (NotDetected) Influenza Type B (PCR) (NotDetected) M. pneumoniae (PCR) (NotDetected) Parainfluenza 1 (PCR) (NotDetected) Parainfluenza 2 (PCR) (NotDetected) Parainfluenza 3 (PCR) (NotDetected) Parainfluenza 4 (PCR) (NotDetected) RSV (PCR) (NotDetected) Entero/Rhino (PCR) (NotDetected) 02/03/23 02/03/23 Range/Units 15:54 17:20 WBC (4.8-10.8) K/ul RBC (4.70-6.10) M/uL Hgb (14.0-18.0) g/dl Hct (42.0-52.0) % MCV (80.0-100.0) fL MCH (25.0-34.0) pg MCHC (32.0-36.0) g/dL RDW Std Deviation (36.4-46.3) fL RDW Coeff of Servando (11.5-14.5) % Plt Count (130-400) K/uL Neutrophils % (Manual) % Lymphocytes % (Manual) % Reactive Lymphs % (Man) % Monocytes % (Manual) % Basophils % (Manual) % Neutrophils # (Manual) (1.40-6.50) K/uL Total Absolute Neuts (1.4-6.5) K/uL Lymphocytes # (Manual) (1.2-3.4) K/uL Reactive Lymphs # K/uL Total Abs Lymphocytes (1.2-3.4) K/uL Monocytes # (Manual) (0.11-0.59) K/uL Basophils # (Manual) (0-0.2) K/uL Tear Drop Cells Ovalocytes Sodium (136-145) mmol/L Potassium (3.5-5.1) mmol/L Chloride (98-107) mmol/L Carbon Dioxide (21-32) mmol/L Anion Gap (3-11) BUN (6-23) mg/dl Creatinine (0.6-1.4) mg/dl Est Cr Clr Drug Dosing ml/min Est GFR ( Amer) ml/min Est GFR (Non-Af Amer) ml/min BUN/Creatinine Ratio (10-20) Glucose (70-99(Fasting)) mg/dl Lactate (0.4-2.0) mmol/L Calcium (8.6-10.3) mg/dl Magnesium (1.7-2.4) mg/dl Total Bilirubin (0.2-1.0) mg/dl Direct Bilirubin (0-0.2) mg/dl AST (13-39) U/L ALT (7-52) U/L Alkaline Phosphatase (34-104) U/L Troponin I High Sens (0-20) pg/ml B-Natriuretic Peptide 49 (0-100) pg/ml Total Protein (6.0-8.3) gm/dl Albumin (3.4-5.0) gm/dl Lipase (11-82) U/L Procalcitonin (0-0.5) ng/ml Urine Color Yellow Urine Appearance Clear (Clear) Urine pH 7.5 (4.5-7.5) Ur Specific [place] 1.015 (1.000-1.030) Urine Protein Trace H (Negative) Urine Glucose (UA) Negative (Negative) Urine Ketones Negative (Negative) Urine Blood Negative (Negative) Urine Nitrite Negative (Negative) Urine Bilirubin Negative (Negative) Urine Urobilinogen Negative (Negative) Ur Leukocyte Esterase Negative (Negative) Urine WBC (Auto) 1-5 (0-5) /hpf Urine RBC (Auto) 0-4 (0-4) /hpf U Hyaline Cast (Auto) 1-5 (0-5) /lpf U Epithel Cells (Auto) 0-5 (0-5) /lpf Urine Bacteria (Auto) Negative (Negative) Digoxin (0.8-2.0) ng/ml Adenovirus (PCR) (NotDetected) B. pertussis DNA (PCR) (NotDetected) B.parapertussis DNA PCR (NotDetected) C. pneumoniae DNA (PCR) (NotDetected) Coronavirus OC43 (PCR) (NotDetected) Coronavirus HKU1 (PCR) (NotDetected) Coronavirus 229E (PCR) (NotDetected) SARS-CoV-2 (PCR) (NotDetected) Coronavirus NL63 (PCR) (NotDetected) Human Metapneumovir PCR (NotDetected) Influenza Type A (PCR) (NotDetected) Influenza Type B (PCR) (NotDetected) M. pneumoniae (PCR) (NotDetected) Parainfluenza 1 (PCR) (NotDetected) Parainfluenza 2 (PCR) (NotDetected) Parainfluenza 3 (PCR) (NotDetected) Parainfluenza 4 (PCR) (NotDetected) RSV (PCR) (NotDetected) Entero/Rhino (PCR) (NotDetected) Imaging Data Attestation: I personally reviewed and interpreted this imaging study as follows: My Impression: Chest x-rayno acute infiltrate, failure, pneumothorax seen a port in place Radiologist's Impression: Chest X-Ray 02/03/23 15:19 XR chest 1V portable CLINICAL HISTORY: Sepsis. COMPARISON STUDY: Chest radiograph August 05, 2022. FINDINGS: Pediatric median sternotomy wires are noted. Right internal jugular [id number] is in place. Possible ASD occluder device. In addition, possible PDA closure device. Cardiomediastinal silhouette is stable. No pneumothorax is present. Slight blunting of the right costophrenic angle is chronic. There is no consolidation. No evidence for pulmonary edema. Mild elevation the right hemidiaphragm is similar to prior chest radiograph. IMPRESSION: No acute cardiopulmonary findings. No significant change in appearance of the chest. ACT 112: Negative or not required by law. Electronically signed by: Marques Machado M.D. 02/03/2023 3:44 PM ECG Data Attestation: I personally reviewed and interpreted this ECG as follows: Indication: + weakness Rate (beats per minute): 105 Rhythm: + sinus tachycardia ECG Intervals/blocks: + Right Bundle branch block ECG [place]: + Right axis deviation ECG ST segments: + Nonspecific ST abnormalities ECG Findings: no PACs or no PVCs Comparison ECG Date: from (08/05/22) Change: no significant change (Right bundle branch block replaces incomplete ri ght bundle branch) MDM Narrative This patient comes in as described above he was placed on a mathematics faculty member in room C5. I saw him promptly acted to get his care started. I am concerned that he is likely neutropenic and has a fever his blood pressure is also on the soft side. He does have a history of hypoplastic left heart in light of this I started with just a 500 cc normal saline bolus. I also started with cefepime 2 g IV for antibiotic coverage. Although he has cefdinir listed as an allergy he received cefdinir the last time he was here without any problems I confirmed this with the chart and the patient. He had a chest x-ray, EKG, and multiple blood testing was reassessed frequently blood cultures and lactic acid were obtained. His blood pressure responded to fluids. He did receive an additional 1 L. Again I was judicious and did not give him the full 30/kg cc given his history of hypoplastic heart and heart failure. His inflammatory markers were not elevated . He was found to be neutropenic. He did tolerate the cefepime well. His urine does not appear to be infected his bio fire was negative. Chest x-ray does not show pneumonia or pneumothorax. He is feeling a lot better but given his neutropenic state and he is also pancytopenic. The patient will need to be admitted and I discussed it with the [facility] hospitalist team for these measures. Continuous cardiac monitoring: Orders placed in EMR for continuous cardiac mon itoring: Upon my evaluation patient was noted to be in sinus tachycardia with a rate of 105 Impression & Plan Fever and neutropenia, Hypoplastic left heart, Sepsis, Antineoplastic chemotherapy induced pancytopenia, Port-A-Cath in place, Lab test negative for COVID-19 virus Discharge Plan Visit Data Chief Complaint: Fever Stated Complaint: FEVER,COUGH,CHEMO ON FRI ED Provider: Venancio Henriquez Discharge Problem: Fever and neutropenia, Hypoplastic left heart, Sepsis, Antineoplastic chemotherapy induced pancytopenia, Port-A-Cath in place, Lab test negative for COVID-19 virus Forms Stand Alone Forms: My [facility] Prescriptions Prescriptions: No Action levofloxacin 500 mg tablet 500 mg PO DAILY allopurinol 100 mg tablet 300 mg PO DAILY lidocaine-prilocaine 2.5-2.5 % cream See Rx Instructions .ROUTE .COMPLEX Rx Instructions: apply to skin over mediport and cover 1hr prior to accessing digoxin 125 mcg (0.125 mg) tablet 125 mcg PO DAILY lisinopril 2.5 mg tablet 2.5 mg PO DAILY Eliquis 2.5 mg tablet 2.5 mg PO BID Referrals Referrals: Isaiah Rangel, [Primary Care Provider] -
--- NOTE | 2023-02-03 15:46 | XRay Report ---
XR chest 1V portable CLINICAL HISTORY: Sepsis. COMPARISON STUDY: Chest radiograph August 05, 2022. FINDINGS: Pediatric median sternotomy wires are noted. Right internal jugular Adaatb-d-Hsmi is in vitaly ce. Possible ASD occluder device. In addition, possible PDA closure device. Cardiomediastinal silhoue tte is stable. No pneumothorax is present. Slight blunting of the right costophrenic angle is chronic . There is no consolidation. No evidence for pulmonary edema. Mild elevation the right hemidiaphragm is similar to prior chest radiograph. IMPRESSION: No acute cardiopulmonary findings. No significant change in appearance of the chest. ACT 112: Negative or not required by law. Electronically signed by: Marques Machado M.D. 02/03/2023 3:44 PM
[2023-02-03 16:52] LABS: Albumin Level 4.5 gm/dl (3.4-5.0); BUN Creatinine Ratio 14.1 (10-20); Bilirubin Direct 0.3 mg/dl (0-0.2); Calcium 9.7 mg/dl (8.6-10.3); Creatinine Clr Calc Pharmacy 97.3 ml/min; Est GFR (African American) 124.8 ml/min; Est GFR (Non-African American) 107.7 ml/min; Magnesium 2.1 mg/dl (1.7-2.4); Potassium 4.2 mmol/L (3.5-5.1); Total Protein 6.9 gm/dl (6.0-8.3)
[2023-02-03 16:58] LABS: Adenovirus PCR Not Detected (NotDetected); Bordetella parapertussis PCR Not Detected (NotDetected); Bordetella pertussis PCR Not Detected (NotDetected); Chlamydia pneumoniae PCR Not Detected (NotDetected); Coronavirus 229E PCR Not Detected (NotDetected); Coronavirus CoV-2 (COVID19)PCR Not Detected (NotDetected); Coronavirus HKU1 PCR Not Detected (NotDetected); Coronavirus NL63 PCR Not Detected (NotDetected); Coronavirus OC43PCR Not Detected (NotDetected); Human Metapneumovirus PCR Not Detected (NotDetected); Influenza A PCR Not Detected (NotDetected); Influenza B PCR Not Detected (NotDetected); Mycoplasma pneumoniae PCR Not Detected (NotDetected); Parainfluenza Virus 1 PCR Not Detected (NotDetected); Parainfluenza Virus 2 PCR Not Detected (NotDetected); Parainfluenza Virus 3 PCR Not Detected (NotDetected); Parainfluenza Virus 4 PCR Not Detected (NotDetected); Respiratory Syncytial VirusPCR Not Detected (NotDetected); Rhinovirus/Enterovirus PCR Not Detected (NotDetected)
[2023-02-03 16:58] LABS: Troponin I High Sensitivity 3.5 pg/ml (0-20)
--- NOTE | 2023-02-03 17:14 | Electrocardiogram Report ---
Test Reason : Blood Pressure : / mmHG Vent. Rate : 105 BPM Atrial Rate : 105 BPM P-R Int : 200 ms QRS Dur : 120 ms QT Int : 340 ms P-R-T Axes : 038 093 082 degrees QTc Int : 449 ms Sinus tachycardia with 1st degree AV block Right bundle branch block Abnormal ECG When compared with ECG of 05-AUG-2022 17:13, No significant change was found Confirmed by Lenard Lawson ([id number]) on 02/03/2023 5:14:16 PM Referred By: REFERRED SELF Confirmed By:Shiva Lawson
[2023-02-03] MEDS ORDERED: SODIUM CHLORIDE 0.9% 500 ML IV ONE (17:15)
[2023-02-03 17:18] LABS: Hematocrit (blood only) 35.3 % (42.0-52.0); Mean Corpuscular Hemoglobin 28.3 pg (25.0-34.0); Mean Corpuscular Volume 83.3 fL (80.0-100.0); Platelet Count 49 K/uL (130-400); RDW Coefficient of Variation 16.7 % (11.5-14.5); RDW Standard Deviation 50.5 fL (36.4-46.3); Red Blood Count 4.24 M/uL (4.70-6.10); White Blood Count 0.75 K/ul (4.8-10.8)
[2023-02-03 17:23] LABS: ALC (manual) 0.49 K/uL (1.2-3.4); ANC (manual) 0.24 K/uL (1.4-6.5); Basophils # (manual) 0.01 K/uL (0-0.2); Basophils % (manual) 1 %; Lymphocytes # (manual) 0.38 K/uL (1.2-3.4); Lymphocytes % (manual) 51 %; Monocytes # (manual) 0.02 K/uL (0.11-0.59); Monocytes % (manual) 3 %; Neutrophils # (manual) 0.24 K/uL (1.40-6.50); Neutrophils % (manual) 32 %; Ovalocytes 1+; Reactive Lymphocytes # (manual) 0.11 K/uL; Reactive Lymphocytes % (manual) 14 %; Tear Drop Cells 2+
[2023-02-03] MEDS ORDERED: VANCOMYCIN CONSULT ACTIVE PRN (17:43)
--- NOTE | 2023-02-03 17:43 | History & Physical Report ---
Date of Service February 03, 2023 Assessment & Plan (1) Sepsis: (2) Fever and neutropenia: (3) Hodgkin's lymphoma: (4) Antineoplastic chemotherapy induced pancytopenia: (5) Hypoplastic left heart: Plan This is a 22-year-old male who has significant past medical history of Hodgkin's lymphoma followed by Dr. 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 Sepsis Neutropenic fever Admit to PCU Continue broad-spectrum antibiotics with IV cefepime and vancomycin Await blood and urine culture result Thus far no source determined And 2 days ago patient did develop sore throat and dry cough, may be secondary to viral URI Blood pressure has improved to 102/68, will be cautious with fluid resuscitation in setting of hypoplastic left heart syndrome status post pt currently on oxygen; however no documented episodes of hypoxia, encourage incentive spirometry and wean as able Hodgkin's lymphoma Antineoplastic chemotherapy induced pancytopenia Patient follows Dr. Cruz if neutropenia continues may need to discuss with Dr. Cruz indication for neupogen monitor cts closely plt 49, pt on eliquis for dvt ppx for port Hypoplastic L heart s/p surgery at pt on lisinopril but has been holding this due to blood pressure being on lower side will continue to hold DVT ppx: eliquis Dispo: admit to PCU, d/c to home once sepsis resolves FULL CODE PCP: Dr. Rangel A total of 75 minutes was spent with greater than 50% of that time personally viewing all current laboratory work and diagnostic imaging studies obtained in the ED. Additionally, I was able to view the patients past medication reconciliation and history with direct visualization in the patients chart. Included in the time above, a portion of that time was spent assessing the patient while discussing and collaborating with specialists, if necessary, and making medical decision making on treatment plan. All of the above was collaborated with Dr. Hughes. Please see addendum for further details. History of Present Illness Chief Complaint: Fever x 2 days. Primary Care Provider: Isaiah Rangel, DO This is a 22-year-old male who has significant past medical history of Hodgkin's lymphoma followed by Dr. 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 He complains of fever last couple days, T max of 102. He complains of dry cough and sore throat that started 2 days ago. He further complains of slight RAMIREZ that has since resolved. He denies chills, sweats, rhinorrhea, sinus congestion, lightheaded, dizziness, chest pain, sob, palpitations, n/v/d, abd pain, no c hange in bowel or urinary habits, melena or hematochezia. He denies sick contacts. Lab work notable for pancytopenia specifically neutropenia with a WBC of 0.75 and ANC of 0.24, CMP unremarkable, procalcitonin 0.07, negative urinalysis, chest x-ray negative, digoxin level WNL and BioFire PCR WNL. He received IV cefepime as well as IV fluid in ED. Fluid was given cautiously in ED due to history of hypoplastic left heart. Patient states due to blood pressure on the lower side the last several days he has not been taking his lisinopril. Allergies Allergy/AdvReac Type Severity Reaction Status Date / Time cefdinir Allergy Mild Verified 11/21/20 10:57 Penicillins Allergy Mild Verified 11/21/20 10:58 Home Medications Medication Instructions Recorded Confirmed Type allopurinol 100 mg tablet 300 mg PO DAILY 08/05/22 02/03/23 History apixaban 2.5 mg tablet (Eliquis) 2.5 mg PO BID 08/05/22 02/03/23 History digoxin 125 mcg (0.125 mg) tablet 125 mcg PO DAILY 08/05/22 02/03/23 History lidocaine-prilocaine 2.5 %-2.5 % See Rx Instructions .Route .COMPLEX 08/05/22 02/03/23 History topical cream lisinopril 2.5 mg tablet 2.5 mg PO DAILY 08/05/22 02/03/23 History levofloxacin 500 mg tablet 500 mg PO DAILY 02/03/23 02/03/23 History Past Med/Surg History Medical History (Updated 02/03/23 @ 19:17 by Venancio Henriquez MD) CKD (chronic kidney disease), stage II Drug-induced systemic lupus erythematosus Factor V Leiden mutation Hodgkin's lymphoma Hyperuricemia Hypoplastic left heart s/p repair Lupus Splenomegaly Thrombocytopenia due to hypersplenism Surgical History (Updated 02/03/23 @ 17:50 by Zoe Petersen PA-C) History of fenestrated Fontan procedure Hx of cardiac cath Family History Other Alcohol abuse Factor 5 Leiden mutation, heterozygous Social History Smoking Status: Never smoker Hx Alcohol Use: No Hx Substance Use: No Preferred Language: Yakut Communication Ability: Effective Beliefs That Will Affect Care: None marital status: Single Current Living Situation: Family Feels Safe at Home: Yes Assistive Devices: None Review of Systems Review of Systems: All systems reviewed & are unremarkable except as noted in HPI & below Physical Exam Physical Exam: Please refer to Dr. Hughes addendum for physical exam findings. Results & Data Results & Data Vital Signs (Past 12 Hours) Vital Signs Temp Pulse Resp BP BP Pulse Ox O2 Del Method 02/03/23 17:25 15 102/68 94 Nasal Cannula 02/03/23 17:00 98 H 16 93 02/03/23 17:00 89/54 L 02/03/23 16:50 95 H 16 97 02/03/23 16:40 95 H 14 97 02/03/23 16:30 97 H 18 96 02/03/23 16:30 95/58 L 02/03/23 16:20 98 H 16 94 02/03/23 16:10 105 H 16 95 02/03/23 16:00 109 H 14 94 02/03/23 16:00 112/65 02/03/23 15:50 104 H 15 93 02/03/23 15:40 100 H 14 93 02/03/23 15:30 103 H 17 92 02/03/23 15:30 103/74 02/03/23 15:20 104 H 18 92 02/03/23 15:10 108 H 16 94 02/03/23 15:00 94 H 15 92 02/03/23 15:00 83/56 L 02/03/23 14:50 97 H 19 94 02/03/23 14:47 108 H 15 93 02/03/23 14:46 99/67 L 02/03/23 15:51 105 H 15 94 Nasal Cannula 02/03/23 14:53 37 C 16 99/67 L 94 Nasal Cannula 02/03/23 14:50 113 H 02/03/23 14:24 37.2 C 121 H 19 117/80 88 L Room Air O2 Flow Rate 02/03/23 17:25 2 02/03/23 17:00 02/03/23 17:00 02/03/23 16:50 02/03/23 16:40 02/03/23 16:30 02/03/23 16:30 02/03/23 16:20 02/03/23 16:10 02/03/23 16:00 02/03/23 16:00 02/03/23 15:50 02/03/23 15:40 02/03/23 15:30 02/03/23 15:30 02/03/23 15:20 02/03/23 15:10 02/03/23 15:00 02/03/23 15:00 02/03/23 14:50 02/03/23 14:47 02/03/23 14:46 02/03/23 15:51 2 02/03/23 14:53 2 02/03/23 14:50 02/03/23 14:24 Diagnostic Findings Chest X-Ray 02/03/23 15:19 XR chest 1V portable CLINICAL HISTORY: Sepsis. COMPARISON STUDY: Chest radiograph August 05, 2022. FINDINGS: Pediatric median sternotomy wires are noted. Right internal jugular Clssmm-m-Yyns is in place. Possible ASD occluder device. In addition, possible PDA closure device. Cardiomediastinal silhouette is stable. No pneumothorax is present. Slight blunting of the right costophrenic angle is chronic. There is no consolidation. No evidence for pulmonary edema. Mild elevation the right hemidiaphragm is similar to prior chest radiograph. IMPRESSION: No acute cardiopulmonary findings. No significant change in appearance of the chest. ACT 112: Negative or not required by law. Electronically signed by: Marques Machado M.D. 02/03/2023 3:44 PM Medications Administered Medication List Sodium Chloride (Nss) 500 mls @ 999 mls/hr IV .Q31M ONE Stop: 02/03/23 17:45 Last Admin: 02/03/23 17:25 Dose: 999 mls/hr Documented By: BREANNA Sodium Chloride (Nss 1000ml) 500 mls @ 999 mls/hr IV .Q31M ONE Stop: 02/03/23 17:50 Last Admin: 02/03/23 17:25 Dose: 999 mls/hr Documented By: BREANNA Discontinued Medications Sodium Chloride (Nss 1000ml) 500 mls @ 999 mls/hr IV .Q31M ONE Stop: 02/03/23 15:50 Last Infusion: 02/03/23 16:27 Dose: 0 mls/hr Documented By: Admin: 02/03/23 15:53 Dose: 999 mls/hr Documented By: BREANNA Cefepime HCl (Maxipime) 2,000 mg in 20 mls @ 5 mls/min IV NOW STA; Protocol Stop: 02/03/23 15:27 Last Admin: 02/03/23 15:53 Dose: 5 mls/min Documented By: BREANNA ECG Rate (beats per minute): 105 Rhythm: sinus bradycardia Findings: + 1st degree AV block COVID-19 Results Results COVID-19 Adm Lab Results: RBC 4.24 M/uL (4.70-6.10) L 02/03/23 WBC 0.75 K/ul (4.8-10.8) L* 02/03/23 Hgb 12.0 g/dl (14.0-18.0) L 02/03/23 Hct 35.3 % (42.0-52.0) L 02/03/23 Plt Count 49 K/uL (130-400) L 02/03/23 ANC 0.24 K/uL (1.4-6.5) L* 02/03/23 ALC 0.49 K/uL (1.2-3.4) L 02/03/23 Neutrophils % (Manual) 32 % 02/03/23 Lymphocytes % (Manual) 51 % 02/03/23 Reactive Lymphocytes % (Manual) 14 % 02/03/23 Monocytes % (Manual) 3 % 02/03/23 Basophils % (Manual) 1 % 02/03/23 Neutrophils # (Manual) 0.24 K/uL (1.40-6.50) L 02/03/23 Lymphocytes # (Manual) 0.38 K/uL (1.2-3.4) L 02/03/23 Reactive Lymphocytes # 0.11 K/uL 02/03/23 Monocytes # (Manual) 0.02 K/uL (0.11-0.59) L 02/03/23 Basophils # (Manual) 0.01 K/uL (0-0.2) 02/03/23 Tear Drop Cells 2+ 02/03/23 Ovalocytes 1+ 02/03/23 Na 136 mmol/L (136-145) 02/03/23 K 4.2 mmol/L (3.5-5.1) 02/03/23 Cl 105 mmol/L (98-107) 02/03/23 CO2 24 mmol/L (21-32) 02/03/23 Anion Gap 7 (3-11) 02/03/23 BUN 14 mg/dl (6-23) 02/03/23 Creatinine 0.99 mg/dl (0.6-1.4) 02/03/23 BUN/Creatinine Ratio 14.1 (10-20) 02/03/23 Glucose Level 70 mg/dl (70-99(Fasting)) 02/03/23 Ca 9.7 mg/dl (8.6-10.3) 02/03/23 Total Bilirubin 1.0 mg/dl (0.2-1.0) 02/03/23 Direct Bilirubin 0.3 mg/dl (0-0.2) H 02/03/23 AST/SGOT 22 U/L (13-39) 02/03/23 ALT/SGPT 30 U/L (7-52) 02/03/23 Alkaline Phosphatase 83 U/L (34-104) 02/03/23 Total Protein 6.9 gm/dl (6.0-8.3) 02/03/23 Albumin 4.5 gm/dl (3.4-5.0) 02/03/23 Procalcitonin 0.07 ng/ml (0-0.5) 02/03/23 Adenovirus (PCR) Not Detected (NotDetected) 02/03/23 B. parapertussis DNA (PCR) Not Detected (NotDetected) 01/13 02/03 B. pertussis DNA (PCR) Not Detected (NotDetected) 02/03/23 C. pneumoniae DNA (PCR) Not Detected (NotDetected) 3 Coronavirus Type OC43 (PCR) Not Detected (NotDetected) Coronavirus Type HKU1 (PCR) Not Detected (NotDetected) Coronavirus Type 229E (PCR) Not Detected (NotDetected) COVID-19 PCR Not Detected (NotDetected) 02/03/23 Coronavirus Type NL63 (PCR) Not Detected (NotDetected) Human Metapneumovirus (PCR) Not Detected (NotDetected) Influenza Virus Type A (PCR) Not Detected (NotDetected) Influenza Virus Type B (PCR) Not Detected (NotDetected) M. pneumoniae (PCR) Not Detected (NotDetected) 02/03/23 Parainfluenza Type 1 (PCR) Not Detected (NotDetected) 01/13 02/03 Parainfluenza Type 2 (PCR) Not Detected (NotDetected) 01/13 02/03 Parainfluenza Type 3 (PCR) Not Detected (NotDetected) 01/13 02/03 Parainfluenza Type 4 (PCR) Not Detected (NotDetected) 01/13 02/03 RSV (PCR) Not Detected (NotDetected) 02/03/23 Enterovirus/Rhinovirus (PCR) Not Detected (NotDetected) Chest X-Ray 02/03/23 Code Status & VTE Plan Code Status FULL CODE Supervising Physician Co-Signing Physician Notes Date of Service: February 03, 2023 History and physical exam performed by me. History notable for 22-year-old man with history of Hodgkin's lymphoma on chemo, hypoplastic heart status post surgery, Factor V leiden on Eliquis who presents with fever and cough for the past 3 days. Patient reports that last dose of chemo was last week. Reports that he started having fever and cough associated with sore throat at home 3 days ago. Cough was nonproductive. Denied any congestion, rhinorrhea, shortness of breath or chest pain. Reports some headache. Noted fever at home and went up to 102.7 last night. Denied any other symptoms on review of system On exam General: Well hydrated, no acute distress Eyes: PERRL, conjunctivae normal, not pale, anicteric sclerae, EOM intact bilaterally ENMT: External ear and nose normal, oropharynx normal Respiratory: Normal respiratory effort, no respiratory distress, lungs clear to auscultation, no crackles and no wheezes Cardiovascular: Tachycardic, S1 S2 Gastrointestinal (Abdomen): Abdomen is not distended, soft, non-tender to palpation, no guarding, no palpable hepatosplenomegaly, normal bowel sounds Musculoskeletal: No pedal edema Genitourinary: No CVA tenderness Neurologic: Alert and oriented x 3, No focal weakness, sensation grossly intact Psychiatric: Euthymic affect Labs notable for WBC of 0.75 [absolute neutrophil count of 0.24], hemoglobin of 12, platelet of 49 Chest x-ray did not show any acute abnormality. Neutropenic fever. Considering respiratory symptoms, possible upper respiratory viral illness. Respiratory PCR is negative at this time. Reported temperature of 102.7 at home and was tachycardic on presentation hence, sepsis is a possibility. Considering immuno compromised state, will cover with broad-spectrum antibiotics for now. Follow-up infectious work-up Monitor CBC with differential Continue home digoxin, Eliquis, lisinopril Hold prophylactic levofloxacin at this time while on broad-spectrum antibiotic Other plans as detailed by Zoe Petersen PA-C
--- NOTE | 2023-02-03 17:52 | Communication Note ---
Date of Service: February 03, 2023 History and physical exam performed by me. History notable for 22-year-old man with history of Hodgkin's lymphoma on chemo, hypoplastic heart status post surgery, Factor V leiden on Eliquis who presents with fever and cough for the past 3 days. Patient reports that last dose of chemo was last week. Reports that he started having fever and cough associated with sore throat at home 3 days ago. Cough was nonproductive. Denied any congestion, rhinorrhea, shortness of breath or chest pain. Reports some headache. Noted fever at home and went up to 102.7 last night. Denied any other symptoms on review of system On exam General: Well hydrated, no acute distress Eyes: PERRL, conjunctivae normal, not pale, anicteric sclerae, EOM intact bilaterally ENMT: External ear and nose normal, oropharynx normal Respiratory: Normal respiratory effort, no respiratory distress, lungs clear to auscultation, no crackles and no wheezes Cardiovascular: Tachycardic, S1 S2 Gastrointestinal (Abdomen): Abdomen is not distended, soft, non-tender to palpation, no guarding, no palpable hepatosplenomegaly, normal bowel sounds Musculoskeletal: No pedal edema Genitourinary: No CVA tenderness Neurologic: Alert and oriented x 3, No focal weakness, sensation grossly intact Psychiatric: Euthymic affect Labs notable for WBC of 0.75 [absolute neutrophil count of 0.24], hemoglobin of 12, platelet of 49 Chest x-ray did not show any acute abnormality. Neutropenic fever. Considering respiratory symptoms, possible upper respiratory viral illness. Respiratory PCR is negative at this time. Reported temperature of 102.7 at home and was tachycardic on presentation hence, sepsis is a possibility. Considering immuno compromised state, will cover with broad-spectrum antibiotics for now. Follow-up infectious work-up Monitor CBC with differential Continue home digoxin, Eliquis, lisinopril Hold prophylactic levofloxacin at this time while on broad-spectrum antibiotic Other plans as detailed by Zoe Petersen PA-C
[2023-02-03 17:53] LABS: Appearance Urine Clear (Clear); Bacteria Urine Automated Negative (Negative); Bilirubin Urine Negative (Negative); Blood Urine Negative (Negative); Color Urine Yellow; Epithelial Cell Urine Auto 0-5 /lpf (0-5); Glucose Urine UA Negative (Negative); Ketones Urine Negative (Negative); Leukocyte Esterase Urine Negative (Negative); Nitrite Urine Negative (Negative); Protein Urine Trace (Negative); RBC Urine Automated 0-4 /hpf (0-4); Specific Gravity Urine 1.015 (1.000-1.030); Urobilinogen Urine Negative (Negative); pH Urine 7.5 (4.5-7.5)
[2023-02-03] MEDS ORDERED: VANCOMYCIN HCL 1,500 MG in SODIUM CHLORIDE 0.9% 500 ML IV ONE (19:00)
[2023-02-03] MEDS ORDERED: MAGNESIUM HYDROXIDE SUSP 30 ML UDC PO PRN (21:31)
[2023-02-03] MEDS ORDERED: ONDANSETRON INJ 2 MG/ML 2 ML VIAL IV PRN (21:31)
[2023-02-03] MEDS ORDERED: guaiFENesin 600 MG TABCR PO PRN (21:31)
[2023-02-03] MEDS ORDERED: LACTATED RINGER'S 1,000 ML IV SCH (21:31)
[2023-02-03] MEDS ORDERED: ALUMINUM/MAGNESIUM SUSP 30 ML UDC PO PRN (21:31)
[2023-02-03] MEDS ORDERED: CHLORASEPTIC 1.4% SOLN 180 ML BTL MT PRN (21:31)
[2023-02-03] MEDS ORDERED: POLYETHYLENE (MIRALAX) 17 GM PACK PO PRN (21:31)
[2023-02-03] MEDS ORDERED: diphenhydrAMINE Capsule 25 MG CAP PO ONE (22:07)
--- NOTE | 2023-02-03 22:07 | Communication Note ---
Date of Service: February 03, 2023 Patient noted to have pruritic hives on his forehead during IV vancomycin infusion as per RN. No shortness of breath or wheezing as per RN. AP Vancomycin hypersensitivity Stop vancomycin Benadryl 1 dose [address] in place of vancomycin for MRSA coverage for neutropenic fever owing to patient's Mediport
[2023-02-03] MEDS ORDERED: LACTATED RINGER'S 1,000 ML IV ONE (22:12)
[2023-02-03] MEDS: APIXABAN 2.5 MG TAB PO SCH (22:33)
[2023-02-03] MEDS: DAPTOmycin 375 MG in SYRINGE 0 ML IV SCH (22:52)
[2023-02-04] MEDS: CEFEPIME 2,000 MG in SYRINGE 0 ML IV SCH ×4 (00:01→23:48)
[2023-02-04 06:30] LABS: Hematocrit (blood only) 29.8 % (42.0-52.0); Hemoglobin 9.8 g/dl (14.0-18.0); Mean Corpuscular Hemoglobin 28.2 pg (25.0-34.0); Mean Corpuscular Hgb Conc 32.9 g/dL (32.0-36.0); Mean Corpuscular Volume 85.9 fL (80.0-100.0); Platelet Count 53 K/uL (130-400); RDW Coefficient of Variation 16.7 % (11.5-14.5); RDW Standard Deviation 52.2 fL (36.4-46.3); Red Blood Count 3.47 M/uL (4.70-6.10); White Blood Count 0.48 K/ul (4.8-10.8)
[2023-02-04 06:39] LABS: Albumin Level 3.9 gm/dl (3.4-5.0); BUN Creatinine Ratio 11.8 (10-20); Bilirubin,Total 0.9 mg/dl (0.2-1.0); Calcium 8.9 mg/dl (8.6-10.3); Creatinine Clr Calc Pharmacy 89.7 ml/min; Est GFR (African American) 109.9 ml/min; Est GFR (Non-African American) 94.8 ml/min; Magnesium 1.9 mg/dl (1.7-2.4); Potassium 4.5 mmol/L (3.5-5.1); Total Protein 5.9 gm/dl (6.0-8.3)
[2023-02-04] MEDS: allopurinoL 300 MG TAB PO SCH (08:47)
[2023-02-04] MEDS: APIXABAN 2.5 MG TAB PO SCH ×2 (08:48→22:03)
[2023-02-04] MEDS ORDERED: VANCOMYCIN HCL 1,250 MG in SODIUM CHLORIDE 0.9% 250 ML IV SCH (13:00)
[2023-02-04] MEDS: ACETAMINOPHEN 325 MG TAB PO PRN (16:35)
[2023-02-04] MEDS: DIGOXIN 0.125 MG TAB PO SCH (16:36)
--- NOTE | 2023-02-04 17:06 | Hospitalist Progress Note ---
Date of Service February 04, 2023 Assessment & Plan (1) Sepsis: (2) Fever and neutropenia: (3) Hodgkin's lymphoma: (4) Antineoplastic chemotherapy induced pancytopenia: (5) Hypoplastic left heart: Plan This is a 22-year-old male who has significant past medical history of Hodgkin's lymphoma followed by Dr. 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 Sepsis Neutropenic fever WBC 0.48 today Blood cx pending CXR showed no acute cardiopulmonary findings. No significant change in appearance of the chest. Vanco was changed for possible allergic reaction ( rash ) Continue broad-spectrum antibiotics with IV cefepime and Daptomycin Continue to have intermittent fever Continue monitor closely Hodgkin's lymphoma Antineoplastic chemotherapy induced pancytopenia Patient follows Dr. Cruz if neutropenia continues may need to discuss with Dr. Cruz indication for neupogen Continue monitor CBC Hypoplastic L heart s/p surgery at pt on lisinopril but has been holding this due to blood pressure being on lower side will continue to hold DVT ppx: eliquis Dispo: Will discharge once medically stable FULL CODE Admission and Anticipated Discharge Date Admission Date: February 03, 2023 Subjective Pt was seen and examined for follow up of fever Sitting in bed with no acute distress with mother at bedside Pt said that he feels ok He continues to spike fever Denies any chest pain, palpitation, dizziness and SOB Review of Systems Review of Systems: All systems reviewed & are unremarkable except as noted in Subjective Physical Exam Physical Exam: General- No acute distress Head- atraumatic Eyes- PERRL, EOMI, ENT- oropharynx clear Neck- supple, no JVD Lungs- No wheezing Heart- regular rhythm; no murmur Abdomen- normal bowel sounds, soft, nontender Extremities- no calf tenderness Neuro- alert, oriented x 3; PERRL, EOMI; no facial palsy; no dysarthria Skin- warm & dry Results & Data Results & Data Vital Signs (Past 12 Hours) Vital Signs Temp Pulse Pulse Resp BP Pulse Ox O2 Del Method 02/04/23 16:36 88 02/04/23 16:15 38.8 C H 92 H 16 88/57 L 94 Nasal Cannula 02/04/23 12:16 37.4 C 84 16 93/61 L 90 Room Air 02/04/23 12:05 Room Air 02/04/23 05:35 67 (1) Sepsis Sepsis acute organ dysfunction status: unspecified Sepsis type: sepsis due to unspecified organism Qualified Code(s): A41.9 - Sepsis, unspecified organism
[2023-02-04] MEDS ORDERED: SODIUM CHLORIDE 0.9% 500 ML IV SCH (18:45)
[2023-02-04] MEDS: DAPTOmycin 375 MG in SYRINGE 0 ML IV SCH (22:03)
[2023-02-05] MEDS: CEFEPIME 2,000 MG in SYRINGE 0 ML IV SCH ×2 (07:46→16:33)
[2023-02-05] MEDS: APIXABAN 2.5 MG TAB PO SCH ×2 (07:47→20:25)
[2023-02-05] MEDS: allopurinoL 300 MG TAB PO SCH (07:47)
[2023-02-05 08:31] LABS: Hematocrit (blood only) 35.5 % (42.0-52.0); Hemoglobin 11.6 g/dl (14.0-18.0); Mean Corpuscular Hemoglobin 28.2 pg (25.0-34.0); Mean Corpuscular Hgb Conc 32.7 g/dL (32.0-36.0); Mean Corpuscular Volume 86.2 fL (80.0-100.0); Platelet Count 90 K/uL (130-400); RDW Coefficient of Variation 16.4 % (11.5-14.5); RDW Standard Deviation 51.7 fL (36.4-46.3); Red Blood Count 4.12 M/uL (4.70-6.10)
[2023-02-05 08:38] LABS: BUN Creatinine Ratio 14.3 (10-20); Calcium 9.1 mg/dl (8.6-10.3); Creatinine Clr Calc Pharmacy 87.9 ml/min; Est GFR (African American) 107.5 ml/min; Est GFR (Non-African American) 92.7 ml/min; Potassium 3.4 mmol/L (3.5-5.1)
[2023-02-05 08:55] LABS: Basophils # (auto) 0.01 K/uL (0-0.2); Basophils % (auto) 1.3 %; Lymphocytes # (auto) 0.41 K/uL (1.2-3.4); Lymphocytes % (auto) 51.3 %; Monocytes % (auto) 12.5 %; Neutrophils # (auto) 0.28 K/uL (1.40-6.50); Neutrophils % (auto) 34.9 %
[2023-02-05 08:59] LABS: Ovalocytes 1+; Tear Drop Cells 1+
[2023-02-05] MEDS ORDERED: POTASSIUM CHLORIDE CRTAB 20 MEQ TABCR PO STA (12:12)
[2023-02-05] MEDS: DIGOXIN 0.125 MG TAB PO SCH (16:33)
[2023-02-05] MEDS: ACETAMINOPHEN 325 MG TAB PO PRN (16:37)
--- NOTE | 2023-02-05 16:57 | Hospitalist Progress Note ---
Date of Service February 05, 2023 Assessment & Plan (1) Sepsis: (2) Fever and neutropenia: (3) Hodgkin's lymphoma: (4) Antineoplastic chemotherapy induced pancytopenia: (5) Hypoplastic left heart: Plan This is a 22-year-old male who has significant past medical history of Hodgkin's lymphoma followed by Dr. 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 Sepsis Neutropenic fever WBC 0.8 today Blood cx no growth CXR showed no acute cardiopulmonary findings. No significant change in appearance of the chest. Vanco was changed for possible allergic reaction ( rash ) Continue broad-spectrum antibiotics with IV cefepime and Daptomycin Continue to have intermittent fever Continue monitor closely Hodgkin's lymphoma Antineoplastic chemotherapy induced pancytopenia Patient follows Dr. Cruz if neutropenia continues may need to discuss with Dr. Cruz indication for neupogen Continue monitor CBC Hypoxia CXR showed no acute cardiopulmonary findings. No significant change in appearance of the chest. Currently on oxygen supplement Denies any SOB Will need 2 step on discharge if no improvement Hypoplastic L heart s/p surgery at pt on lisinopril but has been holding this due to blood pressure being on lower side continue to hold Lisinopril DVT ppx: eliquis Dispo: Will discharge once medically stable FULL CODE Admission and Anticipated Discharge Date Admission Date: February 03, 2023 Subjective Pt was seen and examined for follow up of fever Lying in bed with no acute distress Pt said that he feels ok He spiked a fever last night Currently he is afebrile Denies any chest pain, palpitation, dizziness and SOB Review of Systems Review of Systems: All systems reviewed & are unremarkable except as noted in Subjective Physical Exam Physical Exam: General- No acute distress Head- atraumatic Eyes- PERRL, EOMI, ENT- oropharynx clear Neck- supple, no JVD Lungs- No wheezing Heart- regular rhythm; no murmur Abdomen- normal bowel sounds, soft, nontender Extremities- no calf tenderness Neuro- alert, oriented x 3; PERRL, EOMI; no facial palsy; no dysarthria Skin- warm & dry Results & Data Results & Data Vital Signs (Past 12 Hours) Vital Signs Temp Pulse Pulse Resp BP Pulse Ox O2 Del Method 02/05/23 16:00 37.7 C H 02/05/23 16:33 83 02/05/23 16:00 95 H 02/05/23 12:20 37.6 C H 92 H 18 95/58 L 91 Nasal Cannula 02/05/23 08:38 36.8 C 87 18 101/65 94 Nasal Cannula 02/05/23 08:00 Room Air 02/05/23 08:00 79 O2 Flow Rate 02/05/23 16:00 02/05/23 16:33 02/05/23 16:00 02/05/23 12:20 3.0 02/05/23 08:38 3.0 02/05/23 08:00 02/05/23 08:00 (1) Sepsis Sepsis acute organ dysfunction status: unspecified Sepsis type: sepsis due to unspecified organism Qualified Code(s): A41.9 - Sepsis, unspecified organism
[2023-02-06] MEDS: CEFEPIME 2,000 MG in SYRINGE 0 ML IV SCH (00:19)
[2023-02-06 05:56] LABS: BUN Creatinine Ratio 15.7 (10-20); Creatinine Clr Calc Pharmacy 110.7 ml/min; Est GFR (African American) 140.7 ml/min; Est GFR (Non-African American) 121.4 ml/min
[2023-02-06 06:25] LABS: Hematocrit (blood only) 30.5 % (42.0-52.0); Mean Corpuscular Hgb Conc 32.8 g/dL (32.0-36.0); Mean Corpuscular Volume 85.4 fL (80.0-100.0); Platelet Count 100 K/uL (130-400); RDW Coefficient of Variation 16.5 % (11.5-14.5); RDW Standard Deviation 51.1 fL (36.4-46.3); Red Blood Count 3.57 M/uL (4.70-6.10); White Blood Count 0.89 K/ul (4.8-10.8)
[2023-02-06] MEDS: allopurinoL 300 MG TAB PO SCH (08:52)
[2023-02-06] MEDS: APIXABAN 2.5 MG TAB PO SCH ×2 (08:52→20:54)
[2023-02-06] MEDS: DIGOXIN 0.125 MG TAB PO SCH (16:14)
--- NOTE | 2023-02-06 17:18 | Hospitalist Progress Note ---
Date of Service February 06, 2023 Assessment & Plan (1) Sepsis: (2) Fever and neutropenia: (3) Hodgkin's lymphoma: (4) Antineoplastic chemotherapy induced pancytopenia: (5) Hypoplastic left heart: Plan This is a 22-year-old male who has significant past medical history of Hodgkin's lymphoma followed by Dr. 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 Sepsis Neutropenic fever WBC 0.9 today Blood cx no growth CXR showed no acute cardiopulmonary findings. No significant change in appearance of the chest. Vanco was changed for possible allergic reaction ( rash ) Continue broad-spectrum antibiotics with IV cefepime and Daptomycin he has been afebrile for 24hr so far Continue monitor closely Thrombocytopenia Platelet 100 today No sign of bleeding Continue monitor CBC Hodgkin's lymphoma Antineoplastic chemotherapy induced pancytopenia Patient follows Dr. Cruz if neutropenia continues may need to discuss with Dr. Cruz indication for Neupogen Continue monitor CBC Hypoxia CXR showed no acute cardiopulmonary findings. No significant change in appearance of the chest. Currently on oxygen supplement Case discussed with pediatric cardiology to discussed about echo finding ECHO done showed no significant changes Denies any SOB Will need 2 step on discharge if no improvement Hypoplastic L heart s/p surgery at pt on lisinopril but has been holding this due to blood pressure being on lower side Continue to hold Lisinopril DVT ppx: Eliquis Dispo: Will discharge once medically stable FULL CODE Admission and Anticipated Discharge Date Admission Date: February 03, 2023 Subjective Pt was seen and examined for follow up of fever Sitting in bed with no acute distress Pt continues requiring oxygen Denies any chest pain, palpitation, dizziness and SOB Review of Systems Review of Systems: All systems reviewed & are unremarkable except as noted in Subjective Physical Exam Physical Exam: General- No acute distress Head- atraumatic Eyes- PERRL, EOMI, ENT- oropharynx clear Neck- supple, no JVD Lungs- No wheezing Heart- regular rhythm; no murmur Abdomen- normal bowel sounds, soft, nontender Extremities- no calf tenderness Neuro- alert, oriented x 3; PERRL, EOMI; no facial palsy; no dysarthria Skin- warm & dry Results & Data Results & Data Vital Signs (Past 12 Hours) Vital Signs Temp Pulse Pulse Resp BP Pulse Ox O2 Del Method 02/06/23 16:14 86 02/06/23 12:29 37.2 C 100 H 18 109/64 91 Nasal Cannula 02/06/23 08:22 36.8 C 82 19 96/62 L 90 Nasal Cannula 02/06/23 08:01 Nasal Cannula 02/06/23 08:01 68 O2 Flow Rate 02/06/23 16:14 02/06/23 12:29 3.0 02/06/23 08:22 3.0 02/06/23 08:01 2 02/06/23 08:01 (1) Sepsis Sepsis acute organ dysfunction status: unspecified Sepsis type: sepsis due to unspecified organism Qualified Code(s): A41.9 - Sepsis, unspecified organism
[2023-02-07] MEDS: APIXABAN 2.5 MG TAB PO SCH (08:54)
[2023-02-07] MEDS: allopurinoL 300 MG TAB PO SCH (08:54)
[2023-02-07 09:41] LABS: Hematocrit (blood only) 40.1 % (42.0-52.0); Mean Corpuscular Hemoglobin 28.1 pg (25.0-34.0); Mean Corpuscular Hgb Conc 32.4 g/dL (32.0-36.0); Mean Corpuscular Volume 86.6 fL (80.0-100.0); Platelet Count 154 K/uL (130-400); RDW Coefficient of Variation 16.9 % (11.5-14.5); RDW Standard Deviation 52.5 fL (36.4-46.3); Red Blood Count 4.63 M/uL (4.70-6.10); White Blood Count 1.22 K/ul (4.8-10.8)
[2023-02-07] MEDS ORDERED: levoFLOXacin 750 MG TAB PO ONE (14:45)
[2023-02-07] MEDS: DIGOXIN 0.125 MG TAB PO SCH (17:13)
--- NOTE | 2023-02-07 18:00 | Discharge Summary ---
Date of Service February 07, 2023 Admission HPI Per Admitting Provider This is a 22-year-old male who has significant past medical history of Hodgkin's lymphoma followed by Dr. 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 He complains of fever last couple days, T max of 102. He complains of dry cough and sore throat that started 2 days ago. He further complains of slight RAMIREZ that has since resolved. He denies chills, sweats, rhinorrhea, sinus congestion, lightheaded, dizziness, chest pain, sob, palpitations, n/v/d, abd pain, no change in bowel or urinary habits, melena or hematochezia. He denies sick contacts. Lab work notable for pancytopenia specifically neutropenia with a WBC of 0.75 and ANC of 0.24, CMP unremarkable, procalcitonin 0.07, negative urinalysis, chest x-ray negative, digoxin level WNL and BioFire PCR WNL. He received IV cefepime as well as IV fluid in ED. Fluid was given cautiously in ED due to history of hypoplastic left heart. Patient states due to blood pressure on the lower side the last several days he has not been taking his lisinopril. Discharge Exam General- No acute distress Head- atraumatic Eyes- PERRL, EOMI, ENT- oropharynx clear Neck- supple, no JVD Lungs- No wheezing Heart- regular rhythm; no murmur Abdomen- normal bowel sounds, soft, nontender Extremities- no calf tenderness Neuro- alert, oriented x 3; PERRL, EOMI; no facial palsy; no dysarthria Skin- warm & dry Discharge Data Allergies Allergy/AdvReac Type Severity Reaction Status Date / Time cefdinir Allergy Mild Verified 11/21/20 10:57 Penicillins Allergy Mild Verified 11/21/20 10:58 vancomycin Allergy Mild Hives Verified 02/03/23 22:08 Consultations 02/03/23 17:25 ED Decision to Admit Stat Hospital Course (1) Sepsis: (2) Fever and neutropenia: (3) Hodgkin's lymphoma: (4) Antineoplastic chemotherapy induced pancytopenia: (5) Hypoplastic left heart: Plan This is a 22-year-old male who has significant past medical history of Hodgkin's lymphoma followed by Dr. 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 Sepsis Neutropenic fever WBC 0.9 today Blood cx no growth CXR showed no acute cardiopulmonary findings. No significant change in appearance of the chest. Vanco was changed for possible allergic reaction ( rash ) Continue broad-spectrum antibiotics with IV cefepime and Daptomycin he has been afebrile for 24hr so far Continue monitor closely Thrombocytopenia Platelet 100 today No sign of bleeding Continue monitor CBC Hodgkin's lymphoma Antineoplastic chemotherapy induced pancytopenia Patient follows Dr. Cruz if neutropenia continues may need to discuss with Dr. Cruz indication for Neupogen Continue monitor CBC Hypoxia CXR showed no acute cardiopulmonary findings. No significant change in appearance of the chest. Currently on oxygen supplement Case discussed with pediatric cardiology to discussed about echo finding ECHO done showed no significant changes Denies any SOB Will need 2 step on discharge if no improvement Hypoplastic L heart s/p surgery at pt on lisinopril but has been holding this due to blood pressure being on lower side Continue to hold Lisinopril DVT ppx: Eliquis Dispo: Will discharge once medically stable FULL CODE Discharge Plan Discharge Items Patient Disposition: Home - Self-Care Reason For Visit: NEUTROPENIC FEVER Discharge Diagnosis: (1) Sepsis: (2) Fever and neutropenia: (3) Hodgkin's lymphoma: (4) Antineoplastic chemotherapy induced pancytopenia: (5) Hypoplastic left heart: Activity: Resume your previous activity Non-emergency contact: Primary Care Provider and Section Hand Call non-emergency contact if: you have any medication questions, your symptoms worsen and your temperature is above 101 Follow-up/Referrals: Isaiah Rangel DO [Primary Care Provider] - (Date & Time 02/11/2023 11:00 AM Provider Jennifer Holland MD Department [facility] ) Diet: Regular Addtl Attending Provider Instructions: Follow up with your primary care provider 02/11/2023 @ 11:00 AM Jennifer Holland MD Department [facility] Follow up with your cardiology Follow up with your Oncology and Hematology Check CBC to monitor your White blood count and platelet (Your Hematology will order it) While your white blood cell count is too low, you are at higher risk from infection. You are still neutropenic, so consider additional protections such as isolating away from those who are sick and frequent hand washing with mask wearing where appropriate. It was a pleasure taking care of you! Please call if you have any questions or problems. You can reach a [facility] hospitalist on duty at [facility] 24 hours a day by calling [phone]. Continue oxygen supplement with 3 liter Nasal canula with ambulation Continue to hold Lisinopril due to low blood pressure. Your provider will advise you when to resume it. Seek medical attention if your symptoms worsening or develop any shortness of breath Pending Studies at Discharge: No Stand-Alone Forms: My [facility], Smoking Cessation Medications and DC Order Prescriptions: Continued levofloxacin 500 mg tablet 500 mg PO DAILY allopurinol 100 mg tablet 300 mg PO DAILY lidocaine-prilocaine 2.5-2.5 % cream See Rx Instructions .ROUTE .COMPLEX Rx Instructions: apply to skin over mediport and cover 1hr prior to accessing digoxin 125 mcg (0.125 mg) tablet 125 mcg PO DAILY lisinopril 2.5 mg tablet 2.5 mg PO DAILY Eliquis 2.5 mg tablet 2.5 mg PO BID Discharge Orders: Discharge Order (Routine); Ordered 02/07/23 Ordered By: Karissa Yeung Admission Data Admit Date/Time: 02/03/23 17:45 Attending Provider: Karissa Yeung Admit Provider: Angela Hughes I. Primary Care Provider: Isaiah Rangel Other Providers: Angela Hughes I. Other Interventions: Discharge Summary Assessment (RN) Last Done: 02/07/23 17:03
[2023-02-08] MEDS ORDERED: levoFLOXacin 750 MG TAB PO SCH (11:00)
== END 2023-02-07 18:26 | disposition home or self-care (01) | DRG 871 ==
LOC: ED 14:20 → 4W 17:45 → SUATTDRO 17:45 → 4W 20:11